=== PATIENT | male | born 1955 | race Native Hawaiian/Other Pacific Islander ===

== ENCOUNTER 2017-12-19 18:40 | Emergency (ER) | payer BC ==
--- NOTE | 2017-12-19 19:35 | ED ---
General Adult HPI - General Source: patient, RN notes reviewed Mode of arrival: ambulatory Limitations: no limitations <Yoel Norman - Last Filed: 12/19/17 21:29> <Aiden Cameron - Last Filed: 12/19/17 21:37> - General Chief complaint: Neck Pain/Injury Stated complaint: Neck pain Time Seen by Provider: 12/19/17 18:57 - History of Present Illness Initial comments: 62-year-old male presents to the emergency department for a chief complaint of head and neck pain 5 days. Patient states he came home from [place] and started to have this pain. He states the pain travels from his neck up through the back of his head. He states the pain is worse with movement of the neck. Patient describes the pain in his head as a throbbing pain and is generalized in nature. He denies any photosensitivity or sensitivity to sound. He denies any visual changes. Patient denies any recent head or neck injuries. He does admit to having a teeth cleaning 4 days ago. He denies taking any blood thinners. Patient also complains about a sore throat. He states he has pain with swallowing. He denies any difficulty swallowing solids or liquids. He denies any sensation of swelling of the throat or difficulty breathing. Patient has no other complaints at this time including shortness of breath, chest pain, abdominal pain, nausea or vomiting, headache, or visual changes. (Yoel Norman) - Related Data Home Medications Medication Instructions Recorded Confirmed Celecoxib [CeleBREX] 200 mg PO DAILY 09/18/15 09/18/15 Modafinil [Provigil] 200 mg PO BID 09/18/15 09/21/15 Multivitamins, Thera [Multivitamin] 1 each PO DAILY 09/18/15 09/18/15 Tamsulosin HCl 0.4 mg OP HS 09/18/15 09/21/15 Allergies Allergy/AdvReac Type Severity Reaction Status Date / Time morphine AdvReac Nausea & Verified 09/18/15 17:46 Vomiting Review of Systems ROS Other: All systems not noted in ROS Statement are negative. <Yoel Norman - Last Filed: 12/19/17 21:29> ROS Other: All systems not noted in ROS Statement are negative. <Aiden Cameron - Last Filed: 12/19/17 21:37> ROS Statement: Those systems with pertinent positive or pertinent negative responses have been documented in the HPI. Past Medical History Past Medical History: Prostate Disorder History of Any Multi-Drug Resistant Organisms: None Reported Past Surgical History: Appendectomy, Hernia Repair, Joint Replacement Additional Past Surgical History / Comment(s): LT SHANTEL, BILAT TKA, Past Anesthesia/Blood Transfusion Reactions: No Reported Reaction Past Psychological History: No Psychological Hx Reported Smoking Status: Never smoker Past Alcohol Use History: Rare Past Drug Use History: None Reported - Past Family History Mother Family Medical History: Cancer Additional Family Medical History / Comment(s): KIDNEY Daughter(s) Family Medical History: Cancer Additional Family Medical History / Comment(s): BREAST <Yoel Norman P - Last Filed: 12/19/17 21:29> General Exam Limitations: no limitations General appearance: alert, in no apparent distress Head exam: Present: atraumatic, normocephalic, normal inspection Eye exam: Present: normal appearance, PERRL, EOMI. Absent: scleral icterus, conjunctival injection, periorbital swelling ENT exam: Present: normal exam, mucous membranes moist Neck exam: Present: normal inspection, tenderness (Tenderness to the cervical spine of the neck). Absent: meningismus, full ROM (Patient has limited flexion and extension of the neck. Patient is unable to rotate the neck bilaterally due to pain.), lymphadenopathy Respiratory exam: Present: normal lung sounds bilaterally. Absent: respiratory distress, wheezes, rales, rhonchi, stridor Cardiovascular Exam: Present: regular rate, normal rhythm, normal heart sounds. Absent: systolic murmur, diastolic murmur, rubs, gallop, clicks Neurological exam: Present: alert, oriented X3, CN II-XII intact Expanded Patient oriented to: Present: person, place, time Speech: Present: fluid speech Cranial nerves: EOM's Intact: Normal, Tongue Deviation: Normal, Nystagmus: Normal, Facial Sensation: Normal Cerebellar function: Romberg: Normal Upper motor neuron: Pronator Drift: Normal Sensory exam: Upper Extremity Light Touch: Normal, Upper Extremity Pin Prick: Normal, Lower Extremity Light Touch: Normal, Lower Extremity Pin Prick: Normal Motor strength exam: RUE: 5, LUE: 5, RLE: 5, LLE: 5 Eye Response: (4) open spontaneously Motor Response: (6) obeys commands Verbal Response: (5) oriented Piero Total: 15 (No drift of legs) Psychiatric exam: Present: normal affect, normal mood <Yoel Norman - Last Filed: 12/19/17 21:29> Vital Signs 12/19/17 12/19/17 18:44 20:29 Temperature 98.1 F 99.3 F Pulse Rate 64 Respiratory 18 19 Rate Blood Pressure 165/103 140/85 O2 Sat by Pulse 98 98 Oximetry Medical Decision Making - Lab Data Result diagrams: 12/19/17 19:35 12/19/17 19:35 <Yoel Norman - Last Filed: 12/19/17 21:29> - Lab Data Result diagrams: 12/19/17 19:35 12/19/17 19:35 <Aiden Cameron - Last Filed: 12/19/17 21:37> - Medical Decision Making 62-year-old male with a history of orthopedic surgery and appendectomy presents the emergency department for chief complaint of head and neck pain as well as odynophagia. Patient states he has a generalized throbbing headache at a 10 out of 10. He denies hitting his head or being on blood thinners. He states his neck is painful to turn bilaterally. He states his throat is painful when he swallows. He denies having any difficulty swallowing solids or liquids. No focal neuro deficits, GCS 15. On exam patient does have limited range of motion of the neck. Oropharynx nonerythematous. Uvula midline, no tonsillar exudates noted bilaterally. CBC and CMP unremarkable. Carbon monoxide is 2. Patient is a nonsmoker. Group A strep was negative. CT brain is negative. There is significant prevertebral soft tissue swelling and fluid consistent with retropharyngeal abscess. This measures up to 2.5 x 1 cm in transverse dimension. No sign of intracranial hemorrhage. Blood cultures were initiated and patient is started on Unasyn. Dr. Cameron spoke with Dr. Parks who recommended transfer by ambulance to [facility]. Patient is currently stable, no stridor, no difficulty breathing. Dr. Cameron also saw the patient. (Yoel Norman) I saw this patient in conjunction with the physician assistant account manager. I performed independent history and physical exam. Agree with case management. I discussed case with Dr. Parks, who states that given the complexity of many retropharyngeal abscesses he recommends a tertiary care facility for treatment of this case. I discussed transfer options with the patient and his , and they elect to have [facility]. I discussed case with the surgical AOD, Dr. Talbot who accepts transfer to their emergency department. The patient is protecting his airway. There is no stridor. Room air saturations are good and vital signs are stable. (Aiden Cameron) - Lab Data Lab Results 12/19/17 12/19/17 12/19/17 Range/Units 19:35 19:35 19:35 WBC 8.6 (3.8-10.6) k/uL RBC 5.04 (4.30-5.90) m/uL Hgb 14.9 (13.0-17.5) gm/dL Hct 45.5 (39.0-53.0) % MCV 90.3 (80.0-100.0) fL MCH 29.7 (25.0-35.0) pg MCHC 32.9 (31.0-37.0) g/dL RDW 12.9 (11.5-15.5) % Plt Count 206 (150-450) k/uL Neutrophils % 72 % Lymphocytes % 15 % Monocytes % 8 % Eosinophils % 3 % Basophils % 0 % Neutrophils # 6.2 (1.3-7.7) k/uL Lymphocytes # 1.3 (1.0-4.8) k/uL Monocytes # 0.7 (0-1.0) k/uL Eosinophils # 0.2 (0-0.7) k/uL Basophils # 0.0 (0-0.2) k/uL ESR 6 (0-15) mm/hr Carbon Monoxide, Quant (<10.0) % Sodium 138 (137-145) mmol/L Potassium 4.2 (3.5-5.1) mmol/L Chloride 105 (98-107) mmol/L Carbon Dioxide 26 (22-30) mmol/L Anion Gap 7 mmol/L BUN 21 H (9-20) mg/dL Creatinine 0.89 (0.66-1.25) mg/dL Est GFR (CKD-EPI)AfAm >90 (>60 ml/min/1.73 sqM) Est GFR (CKD-EPI)NonAf >90 (>60 ml/min/1.73 sqM) Glucose 71 L (74-99) mg/dL Calcium 8.8 (8.4-10.2) mg/dL Total Bilirubin 0.7 (0.2-1.3) mg/dL AST 33 (17-59) U/L ALT 29 (21-72) U/L Alkaline Phosphatase 64 (38-126) U/L Total Protein 6.4 (6.3-8.2) g/dL Albumin 3.8 (3.5-5.0) g/dL Group A Strep Rapid Negative (Negative) 12/19/17 Range/Units 19:35 WBC (3.8-10.6) k/uL RBC (4.30-5.90) m/uL Hgb (13.0-17.5) gm/dL Hct (39.0-53.0) % MCV (80.0-100.0) fL MCH (25.0-35.0) pg MCHC (31.0-37.0) g/dL RDW (11.5-15.5) % Plt Count (150-450) k/uL Neutrophils % % Lymphocytes % % Monocytes % % Eosinophils % % Basophils % % Neutrophils # (1.3-7.7) k/uL Lymphocytes # (1.0-4.8) k/uL Monocytes # (0-1.0) k/uL Eosinophils # (0-0.7) k/uL Basophils # (0-0.2) k/uL ESR (0-15) mm/hr Carbon Monoxide, Quant 2.0 (<10.0) % Sodium (137-145) mmol/L Potassium (3.5-5.1) mmol/L Chloride (98-107) mmol/L Carbon Dioxide (22-30) mmol/L Anion Gap mmol/L BUN (9-20) mg/dL Creatinine (0.66-1.25) mg/dL Est GFR (CKD-EPI)AfAm (>60 ml/min/1.73 sqM) Est GFR (CKD-EPI)NonAf (>60 ml/min/1.73 sqM) Glucose (74-99) mg/dL Calcium (8.4-10.2) mg/dL Total Bilirubin (0.2-1.3) mg/dL AST (17-59) U/L ALT (21-72) U/L Alkaline Phosphatase (38-126) U/L Total Protein (6.3-8.2) g/dL Albumin (3.5-5.0) g/dL Group A Strep Rapid (Negative) Disposition Time of Disposition: 21:27 - Out of Hospital Transfer - Req. Specs Out of Hospital Transfer - Requested Specifics: Other Emergency Center ([facility]) <Yoel Norman - Last Filed: 12/19/17 21:29> <Aiden Cameron - Last Filed: 12/19/17 21:37> Clinical Impression: Retropharyngeal abscess Disposition: OTHER INSTITUTION NOT DEFINED Condition: Good Referrals: Chito Mejia MD [Primary Care Provider] - 1-2 days
[2017-12-19] MEDS ORDERED: SODIUM CHLORIDE 0.9% 1,000 ML IV STA (19:47)
[2017-12-19 20:18] LABS: Basophils % (A) 0 %; Eosinophils # (A) 0.2 k/uL (0-0.7); Eosinophils % (A) 3 %; HCT 45.5 % (39.0-53.0); HGB 14.9 gm/dL (13.0-17.5); Lymphocytes # (A) 1.3 k/uL (1.0-4.8); Lymphocytes % (A) 15 %; MCH 29.7 pg (25.0-35.0); MCHC 32.9 g/dL (31.0-37.0); MCV 90.3 fL (80.0-100.0); Mean Platelet Volume 6.7; Monocytes # (A) 0.7 k/uL (0-1.0); Monocytes % (A) 8 %; Neutrophils # (A) 6.2 k/uL (1.3-7.7); Neutrophils % (A) 72 %; Platelet Count 206 k/uL (150-450); RBC 5.04 m/uL (4.30-5.90); RDW 12.9 % (11.5-15.5); WBC 8.6 k/uL (3.8-10.6)
[2017-12-19 20:27] LABS: Albumin 3.8 g/dL (3.5-5.0); Anion Gap 7 mmol/L; Blood Urea Nitrogen 21 mg/dL (9-20); Calcium 8.8 mg/dL (8.4-10.2); Carbon Dioxide 26 mmol/L (22-30); Chloride 105 mmol/L (98-107); Glucose 71 mg/dL (74-99); Sodium 138 mmol/L (137-145); Total Bilirubin 0.7 mg/dL (0.2-1.3); Total Protein 6.4 g/dL (6.3-8.2)
--- NOTE | 2017-12-19 20:36 | CT ---
EXAMINATION TYPE: CT brain umm [place] con DATE OF EXAM: 12/19/2017 COMPARISON: None HISTORY: c/o neck and head pain, no injury CT DLP: 1300 mGycm Automated exposure control for dose reduction was used. TECHNIQUE: CT scan of the head and cervical spine are performed without contrast. FINDINGS: Ventricles of normal size. There is no mass effect nor midline shift. There is no sign of intracranial hemorrhage. Calvarium is intact. There are mucus retention cysts in the right maxillary sinus. Cervical vertebra have normal spacing and alignment for the patient's age. Posterior elements are int act. Facet joints are fairly normal. Skull base is intact. There is significant prevertebral soft tis meng swelling. There is fluid and measures up to 2.5 x 1 cm in transverse dimension. IMPRESSION: Negative CT scan of the brain. Significant prevertebral soft tissue swelling and fluid is consistent with retropharyngeal abscess.
[2017-12-19 20:40] LABS: ALT 29 U/L (21-72); AST 33 U/L (17-59); Alkaline Phosphatase 64 U/L (38-126); Potassium 4.2 mmol/L (3.5-5.1)
[2017-12-19] MEDS ORDERED: AMPICILLIN-SULBACTAM 3 GM in SODIUM CHLORIDE 0.9% 100 ML IVPB STA (20:45)
[2017-12-19] MEDS ORDERED: KETOROLAC 30 MG/ML 1 ML VIAL IVP STA (20:46)
[2017-12-19 21:12] LABS: Erythrocyte Sedimentation Rate 6 mm/hr (0-15)
[2017-12-19 22:24] LABS: Glucose,Whole Blood 93 mg/dL (75-99)
[2017-12-19] MEDS ORDERED: ONDANSETRON 4 MG/2 ML VIAL IVP STA (22:27)
[2017-12-19] MEDS ORDERED: HYDROmorphone 1 MG/ML 1 ML SYRINGE IVP STA (22:28)
[2017-12-19 22:55] VITALS: BP 130/86; PULSE 62; RESP 19; TEMP 99
== END 2017-12-19 22:35 | disposition short-term general hospital (02) ==
LOC: EC 18:40
DX: J39.0 Retropharyngeal and parapharyngeal abscess (principal); R51 Headache; Z79.899 Other long term (current) drug therapy; Z88.5 Allergy status to narcotic agent
CPT/HCPCS: 99285; 96365; 96375 ×3; 96361; 36415; 93005; 80053; 85652; 82375; 85025; 87040; 87081; 87430; 72125; 70450; J2405; J1885; J1170; J0295

== ENCOUNTER 2019-01-04 15:55 | Emergency (ER) | payer BC, OTHER ==
[2019-01-04 16:04] VITALS: TEMP 97.9
--- NOTE | 2019-01-04 16:22 | ED ---
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 Time Seen by Provider: 01/04/19 16:05 - History of Present Illness Initial Comments: 63-year-old male presents emergency Department with chief complaint of slip and fall. Patient slipped on some ice fell directly backwards yesterday. Patient states it happened supple please unsure if he struck his head or not. He does complain of some mild neck pain, back pain. Patient states that he also injured his right knee and right ankle but has been ambulating. Patient was seen at [facility] and sent here for imaging. He denies any blurred vision, focal weakness, nausea, vomiting, diarrhea constipation no difficulty urinating no bowel bladder incontinence or retention. (Michael Maya) - Related Data Home Medications Medication Instructions Recorded Confirmed Celecoxib [CeleBREX] 200 mg PO DAILY 09/18/15 09/18/15 Modafinil [Provigil] 200 mg PO BID 09/18/15 09/21/15 Multivitamins, Thera [Multivitamin] 1 each PO DAILY 09/18/15 09/18/15 Tamsulosin HCl 0.4 mg OP HS 09/18/15 09/21/15 Allergies Allergy/AdvReac Type Severity Reaction Status Date / Time morphine AdvReac Nausea & Verified 01/04/19 16:04 Vomiting Review of Systems ROS Other: All systems not noted in ROS Statement are negative. <Michael Maya - Last Filed: 01/04/19 16:52> ROS Other: All systems not noted in ROS Statement are negative. <Chuck Valerio - Last Filed: 01/04/19 18:18> ROS Statement: Those systems with pertinent positive or pertinent negative responses have been documented in the HPI. Past Medical History Past Medical History: Prostate Disorder History of Any Multi-Drug Resistant Organisms: None Reported Past Surgical History: Appendectomy, Hernia Repair, Joint Replacement Additional Past Surgical History / Comment(s): LT SHANTEL, BILAT TKA, Past Anesthesia/Blood Transfusion Reactions: No Reported Reaction Past Psychological History: No Psychological Hx Reported Smoking Status: Never smoker Past Alcohol Use History: Rare Past Drug Use History: None Reported - Past Family History Mother Family Medical History: Cancer Additional Family Medical History / Comment(s): KIDNEY Daughter(s) Family Medical History: Cancer Additional Family Medical History / Comment(s): BREAST <Michael Maya - Adama Filed: 01/04/19 16:52> General Exam Limitations: no limitations General appearance: alert, in no apparent distress Head exam: Present: atraumatic, normocephalic, normal inspection Eye exam: Present: normal appearance, PERRL, EOMI. Absent: scleral icterus, conjunctival injection, periorbital swelling ENT exam: Present: normal exam, normal oropharynx, mucous membranes moist, TM's normal bilaterally, normal external ear exam Neck exam: Present: normal inspection, tenderness (Diffuse tenderness no step- offdeformity), full ROM. Absent: meningismus, lymphadenopathy Respiratory exam: Present: normal lung sounds bilaterally. Absent: respiratory distress, wheezes, rales, rhonchi, stridor Cardiovascular Exam: Present: regular rate, normal rhythm, normal heart sounds. Absent: systolic murmur, diastolic murmur, rubs, gallop, clicks GI/Abdominal exam: Present: soft, normal bowel sounds. Absent: distended, tenderness, guarding, rebound, rigid Extremities exam: Present: full ROM, tenderness (Tenderness the right knee, right ankle no obvious deformity neurovascular intact full range of motion), normal capillary refill. Absent: normal inspection, pedal edema, joint swelling, calf tenderness Back exam: Present: normal inspection, full ROM, tenderness, paraspinal tenderness, vertebral tenderness. Absent: CVA tenderness (R), CVA tenderness (L) Neurological exam: Present: alert, oriented X3, CN II-XII intact, reflexes normal. Absent: motor sensory deficit Skin exam: Present: warm, dry, intact, normal color. Absent: rash <Michael Maya - Last Filed: 01/04/19 16:52> General appearance: alert, in no apparent distress Head exam: Present: atraumatic, normocephalic, normal inspection Eye exam: Present: normal appearance, PERRL, EOMI. Absent: scleral icterus, conjunctival injection, periorbital swelling ENT exam: Present: normal exam, mucous membranes moist Neck exam: Present: normal inspection. Absent: tenderness, meningismus, lymphadenopathy Respiratory exam: Present: normal lung sounds bilaterally. Absent: respiratory distress, wheezes, rales, rhonchi, stridor Cardiovascular Exam: Present: regular rate, normal rhythm, normal heart sounds. Absent: systolic murmur, diastolic murmur, rubs, gallop, clicks GI/Abdominal exam: Present: soft, normal bowel sounds. Absent: distended, tenderness, guarding, rebound, rigid Extremities exam: Present: normal inspection, full ROM, normal capillary refill. Absent: tenderness, pedal edema, joint swelling, calf tenderness Back exam: Present: normal inspection Neurological exam: Present: alert, oriented X3, CN II-XII intact Psychiatric exam: Present: normal affect, normal mood Skin exam: Present: warm, dry, intact, normal color. Absent: rash <Chuck Valerio - Last Filed: 01/04/19 18:18> Course <Chuck Valerio - Last Filed: 01/04/19 18:18> Vital Signs 01/04/19 15:58 Temperature 97.9 F Pulse Rate 64 Respiratory 16 Rate Blood Pressure 176/116 O2 Sat by Pulse 96 Oximetry - Reevaluation(s) Reevaluation #1: 01/04/19 18:17 Patient has adequate pain control (Chuck Valerio) Reevaluation #2: 01/04/19 18:17 Patient informed of results, will discharge (Chuck Valerio) Medical Decision Making - Radiology Data Radiology results: report reviewed (CT brain C-spine x-rays including shoulder chest thoracic and lumbar spine are negative for traumatic injury), image reviewed <Chuck Valerio - Last Filed: 01/04/19 18:18> - Medical Decision Making 63 male the ER status post fall trip and fall snow. No traumatic injury found on exam no traumatic injury found on imaging. Urine does not show any blood. Patient can be discharged home (Chuck Valerio) - Lab Data Lab Results 01/04/19 Range/Units 17:27 Urine Color Yellow Urine Appearance Clear (Clear) Urine pH 5.5 (5.0-8.0) Ur Specific [place] 1.023 (1.001-1.035) Urine Protein Trace H (Negative) Urine Glucose (UA) Negative (Negative) Urine Ketones Negative (Negative) Urine Blood Negative (Negative) Urine Nitrite Negative (Negative) Urine Bilirubin Negative (Negative) Urine Urobilinogen <2.0 (<2.0) mg/dL Ur Leukocyte Esterase Trace H (Negative) Urine RBC 3 (0-5) /hpf Urine WBC 6 H (0-5) /hpf Urine Mucus Rare H (None) /hpf Disposition Is patient prescribed a controlled substance at d/c from ED?: No <Michael Maya - Last Filed: 01/04/19 16:52> <Chuck Valerio - Last Filed: 01/04/19 18:18> Clinical Impression: Fall due to slipping on ice or snow, Right ankle sprain, Right knee sprain, Back pain, Neck pain Disposition: HOME SELF-CARE Condition: Stable Instructions (If sedation given, give patient instructions): Ankle Sprain (ED), Acute Neck Pain (ED) Additional Instructions: Please return to the Emergency Department if symptoms worsen or any other concerns. Referrals: Chito Mejia MD [Primary Care Provider] - 1-2 days
--- NOTE | 2019-01-04 16:46 | CT ---
EXAMINATION TYPE: CT brain franciscoine wo con DATE OF EXAM: 01/04/2019 COMPARISON: 12/19/2017 HISTORY: Fall today with head and neck pain. CT DLP: 1609.5 mGycm. Automated Exposure Control for Dose Reduction was Utilized. TECHNIQUE: CT scan of the head and cervical spine are performed without contrast. FINDINGS: There is no acute intracranial hemorrhage, mass effect, or midline shift identified. The ventricles and sulci are symmetrically prominent compatible with age-related volume loss. Right max illary mucosal retention cysts are again demonstrated. Scant mucosal thickening of the ethmoid sinuse s. Remaining paranasal sinuses and mastoid air cells are well aerated. Globes maintain a normal round ed morphology and lenses are in place. Cervical spine is visualized in its entirety from C1 through upper thoracic levels and demonstrates s atisfactory alignment without evidence of acute fracture or dislocation. Prevertebral soft tissue ap pears within normal limits. The previously seen prevertebral fluid collection has resolved. The C1-C2 articulation is unremarkable. Probable aneurysmal dilatation of the ascending thoracic aorta althou gh only partially visualized. Punctate sclerotic focus of C3 is likely a benign bone island. Very min imal uncovertebral hypertrophy is seen without a grade spinal canal stenosis. Spinal canal is limited on CT. IMPRESSION: 1. There is no acute fracture or dislocation evident in the cervical spine. 2. No acute intracranial hemorrhage, mass effect, or midline shift is seen. 3. Mild age-related volume loss as seen on the prior. Redemonstration of multiple right maxillary muc osal retention cysts, also seen on the prior.
[2019-01-04] MEDS ORDERED: KETOROLAC 60 MG/2 ML VIAL IM STA (16:56)
--- NOTE | 2019-01-04 17:03 | XR ---
EXAMINATION TYPE: XR ankle complete RT DATE OF EXAM: 01/04/2019 CLINICAL HISTORY: Right ankle pain after fall TECHNIQUE: Frontal, lateral and oblique images of the right ankle are obtained. COMPARISON: None. FINDINGS: There is no acute fracture/dislocation evident in the right ankle. The ankle mortise appe ars within normal limits. The overlying soft tissue appears unremarkable. IMPRESSION: There is no acute fracture or dislocation in the right ankle.
--- NOTE | 2019-01-04 17:03 | XR ---
EXAMINATION TYPE: XR thoracic spine 2V DATE OF EXAM: 01/04/2019 CLINICAL HISTORY: Fall with mid back pain. TECHNIQUE: Frontal, lateral, and swimmer's view of thoracic spine are obtained. COMPARISON: None. FINDINGS: There is an exaggerated thoracic kyphosis. Thoracic spine show satisfactory alignment witho ut evidence of acute fracture or dislocation. Anterior osteophytes are seen throughout the thoracic spine. Vertebral body heights and disc space heights are preserved. Visualized ribs are unremarkable. IMPRESSION: Exaggerated thoracic kyphosis. Mild multilevel degenerative change of the thoracic spine. No acute fracture or dislocation is seen in the thoracic spine.
--- NOTE | 2019-01-04 17:04 | XR ---
EXAMINATION TYPE: XR knee complete RT DATE OF EXAM: 01/04/2019 CLINICAL HISTORY: Right knee pain after fall TECHNIQUE: Three views of the right knee are obtained. COMPARISON: None. FINDINGS: There is no acute fracture/dislocation evident in right knee. The right knee arthroplasty maintains normal alignment without hardware fracture. The overlying soft tissue appears unremarkabl e. IMPRESSION: There is no acute fracture or dislocation in the right knee arthroplasty nor [place] bone .
--- NOTE | 2019-01-04 17:05 | XR ---
EXAMINATION TYPE: XR lumbar spine 2 or 3V DATE OF EXAM: 01/04/2019 CLINICAL HISTORY: Back pain after fall TECHNIQUE: Frontal and lateral images of the lumbar spine are obtained. COMPARISON: None FINDINGS: There are 5 lumbar type vertebral bodies identified. The lumbar spine shows satisfactory alignment without evidence of acute fracture or dislocation. Vertebral body heights and disk space he ights are within normal limits. Facet arthropathy is seen from L4 through S1. Small anterior osteophy eduardo throughout the lumbar spine. The overlying soft tissue appears unremarkable. Partial visualizati on of a left hip arthroplasty and surgical clip in the right hemipelvis. IMPRESSION: No acute fracture or malalignment is seen in the lumbar spine. Mild multilevel degenerat galdino disc disease.
--- NOTE | 2019-01-04 17:48 | XR ---
PROCEDURE: XR shoulder complete RT - 3V DATE AND TIME: 01/04/2019 5:36 PM CLINICAL INDICATION: PHH; pain post fall TECHNIQUE: Department protocol COMPARISON: None FINDINGS: There is no fracture or malalignment. The soft tissues are unremarkable. IMPRESSION: NO ACUTE PROCESS.
[2019-01-04 17:57] LABS: Appearance,Urine Clear (Clear); Bilirubin,Urine Negative (Negative); Blood,Urine Negative (Negative); Color,Urine Yellow; Glucose,Urine (UA) Negative (Negative); Ketones,Urine Negative (Negative); Leukocyte Esterase,Urine Trace (Negative); Mucus,Urine Rare /hpf; Nitrite,Urine Negative (Negative); PH, Urine 5.5 (5.0-8.0); Protein,Urine Trace (Negative); RBC,Urine 3 /hpf (0-5); Specific Gravity,Urine 1.023 (1.001-1.035); Urobilinogen,Urine <2.0 mg/dL (<2.0); WBC,Urine 6 /hpf (0-5)
[2019-01-04 18:37] VITALS: BP 170/92; PULSE 78; RESP 19
== END 2019-01-04 18:37 | disposition home or self-care (01) ==
LOC: EC 15:55
DX: S93.401A Sprain of unspecified ligament of right ankle, initial encounter (principal); S83.91XA Sprain of unspecified site of right knee, initial encounter; M54.2 Cervicalgia; M54.9 Dorsalgia, unspecified; Z79.899 Other long term (current) drug therapy; Z88.5 Allergy status to narcotic agent; Z96.653 Presence of artificial knee joint, bilateral; Z96.642 Presence of left artificial hip joint; W00.0XXA Fall on same level due to ice and snow, initial encounter
CPT/HCPCS: 81001; 72070; 72100; 73030; 73562; 73610; 72125; 70450; 99284; 96372; J1885

== ENCOUNTER → 2019-01-15 | Outpatient (CLI) | payer BC ==
--- NOTE | 2019-01-15 10:21 | CT ---
EXAMINATION TYPE: CT angio chest DATE OF EXAM: 01/15/2019 10:04 AM COMPARISON: Thoracic spine radiograph 01/04/2019 HISTORY: Aneurysm of thoracic aorta. Noted on cspine from 01/04/19. CT DLP: 1232.1 mGycm Automated exposure control for dose reduction was used. CONTRAST: CTA scan of the thorax is performed without and with IV Contrast, patient injected with 100 mL of Iso ekta 370, aortic aneurysm protocol. 3D and MIP reconstructed images are created on an independent wor kstation and reviewed. FINDINGS: Normal course and caliber of the thoracic aorta. No intramural hematoma. No dissection flap, aneurysm , or luminal irregularity. Three-vessel arch without significant ostial stenosis. Mild calcified athe rosclerotic plaque of the aortic arch. The lungs are clear. No pleural effusion or pneumothorax. Heart is within normal limits of size. No pericardial effusion. There are no greater than 1 cm hilar or mediastinal lymph nodes. Elongated air-filled saccule along the dorsal esophagus measures approximately 4.3 cm long, likely Ze nker's diverticulum. No osseous destructive lesion. IMPRESSION: 1. No thoracic aortic aneurysm. No aortic intramural hematoma or dissection. 2. Probable Zenker's diverticulum.
== END | disposition home or self-care (01) ==
LOC: RADCTMAIN 09:04
PROVIDERS: ATTEND Family Medicine
DX: I71.2 Thoracic aortic aneurysm, without rupture (principal)
CPT/HCPCS: 71275; Q9967

== ENCOUNTER → 2019-09-02 | Outpatient (CLI) | payer BC | END | disposition home or self-care (01) | LOC: LABWHC1 13:13 | PROVIDERS: ATTEND Family Medicine | DX: Z20.828 Contact with and (suspected) exposure to other viral communicable diseases (principal) | CPT/HCPCS: 36415 ==

== ENCOUNTER 2020-05-01 12:01 | Day surgery (SDC) | payer BC ==
--- NOTE | 2020-04-30 09:04 | P.GSHP ---
History of Present Illness H&P Date: 04/30/20 64 yo male with an 8 mm proximal ureteral stone wiht hydro and recurrent pain. He comes for a right ureteroscopy and laser lithotripsy. The alternatives have been discussed The risks and complications of this procedure have been discussed. - Constitutional Constitutional: Denies chills, Denies fever - EENT Eyes: denies blurred vision, denies pain Ears, nose, mouth and throat: Denies headache, Denies sore throat - Cardiovascular Cardiovascular: Denies chest pain, Denies shortness of breath - Respiratory Respiratory: Denies cough, Denies 7 - Gastrointestinal Gastrointestinal: Denies abdominal pain, Denies diarrhea, Denies nausea, Denies vomiting - Genitourinary (Female) Genitourinary: Denies dysuria, Denies hematuria - Genitourinary (Male) Genitourinary: Denies dysuria, Denies hematuria - Musculoskeletal Musculoskeletal: Denies myalgias - Integumentary Integumentary: Denies pruritus, Denies rash - Neurological Neurological: Denies numbness, Denies weakness - Psychiatric Psychiatric: Denies anxiety, Denies depression - Endocrine Endocrine: Denies fatigue, Denies weight change Past Medical History Past Medical History: Prostate Disorder History of Any Multi-Drug Resistant Organisms: None Reported Past Surgical History: Appendectomy, Hernia Repair, Joint Replacement Additional Past Surgical History / Comment(s): LT SHANTEL, BILAT TKA, Past Anesthesia/Blood Transfusion Reactions: No Reported Reaction Past Psychological History: No Psychological Hx Reported Past Alcohol Use History: Rare Past Drug Use History: None Reported - Past Family History Mother Family Medical History: Cancer Additional Family Medical History / Comment(s): KIDNEY Daughter(s) Family Medical History: Cancer Additional Family Medical History / Comment(s): BREAST Medications and Allergies Home Medications Medication Instructions Recorded Confirmed Type Celecoxib [CeleBREX] 200 mg PO DAILY 09/18/15 09/18/15 History Multivitamins, Thera [Multivitamin] 1 each PO DAILY 09/18/15 09/18/15 History Tamsulosin HCl 0.4 mg OP HS 09/18/15 09/21/15 History modafiniL [Provigil] 200 mg PO BID 09/18/15 09/21/15 History Allergies Allergy/AdvReac Type Severity Reaction Status Date / Time morphine AdvReac Nausea & Verified 01/04/19 16:04 Vomiting Surgical - Exam - General well developed, well nourished, moderate distress - Eyes PERRL - ENT no hearing loss - Neck no masses, no bruits - Respiratory normal expansion, normal respiratory effort - Cardiovascular Rhythm: regular - Abdomen Abdomen: soft, tender - Genitourinary normal penis with no external lesions, testicles present - Integumentary no rash, no growths - Neurologic normal coordination, normal sensation - Musculoskeletal normal gait, normal posture - Psychiatric oriented to time, oriented to person, oriented to place, speech is normal, mem ory intact Results - Imaging Abdominal x-ray: report reviewed, image reviewed CT scan - abdomen: report reviewed, image reviewed CT scan - pelvis: report reviewed, image reviewed Assessment and Plan Assessment: Impression. Right ureteral stonewith pain and hydro Plan. Right ureteroscopy with laser lithotripsy, possible stent
[2020-04-30 09:57] VITALS: BMI 35.4
[~2020-05-01 12:01] MED LIST: DEXAMETHASONE SOD PHOSPHATE 4 MG/ML 1 ML VIAL IV ONE; LACTATED RINGERS 1,000 ML IV SCH; LIDOCAINE 1% (10MG/ML) FOR IV START INTRADERMA PRN; ONDANSETRON 4 MG/2 ML VIAL IVP ONE
[2020-05-01] MEDS ORDERED: ONDANSETRON 4 MG/2 ML VIAL ONE (12:11)
[2020-05-01 12:30] VITALS: RESP 16
--- NOTE | 2020-05-01 13:15 | XR ---
EXAMINATION TYPE: XR KUB DATE OF EXAM: 05/01/2020 COMPARISON: NONE HISTORY: Preop TECHNIQUE: One view abdominal series FINDINGS: The bowel gas pattern nonspecific. There are at least 3 calcifications overlying the lower pole the l eft kidney measuring approximately 5 mm. Right renal outline is obscured by bowel content. Post surgi mali change left hip. Suggestion of surgical clips overlying the right sacrum. Hypertrophic change of the spine. Correlate for constipation. IMPRESSION: 1. Suspect lower pole left renal calculi. 2. Limited assessment of the right renal outline to extensive overlying bowel content.
[2020-05-01] MEDS ORDERED: GLYCOPYRROLATE 0.2 MG/ML 2 ML VIAL ONE (13:26)
[2020-05-01] MEDS ORDERED: MIDAZOLAM 2 MG/2 ML VIAL ONE (13:26)
[2020-05-01] MEDS ORDERED: PROPOFOL 10 MG/ML 20 ML VIAL IV ONE (13:26)
[2020-05-01] MEDS ORDERED: SUCCINYLCHOLINE CHLORIDE 100 MG/5 ML SYR IV ONE (13:26)
[2020-05-01] MEDS ORDERED: NEOSTIGMINE 1 MG/ML 10 ML VIAL ONE (13:26)
[2020-05-01] MEDS ORDERED: ROCURONIUM 10 MG/ML (5 ML VIAL) IV ONE (13:26)
[2020-05-01] MEDS ORDERED: LIDOCAINE 1% INJ 10MG/ML (20 ML MDV) ONE (13:26)
[2020-05-01] MEDS ORDERED: fentaNYL (PF) 50 MCG/ML 2 ML AMP ONE (13:26)
[2020-05-01] MEDS ORDERED: SODIUM CHLORIDE 0.9% 50 ML with ceFAZolin 2,000 MG IV ONE ×2 (13:40)
--- NOTE | 2020-05-01 14:25 | FL ---
EXAMINATION TYPE: FL guidance operating room DATE OF EXAM: 05/01/2020 HISTORY: Fluoroscopy time 5 seconds of fluoroscopy provided. IMPRESSION: 1. Fluoroscopy time.
--- NOTE | 2020-05-01 14:25 | P.OP ---
Date of Procedure: 05/01/20 Preoperative Diagnosis: Right ureteral stone Postoperative Diagnosis: Same Procedure(s) Performed: Cystoscopy, right ureteroscopy laser lithotripsy Anesthesia: HAYDEA Surgeon: Luigi Duque Estimated Blood Loss (ml): 0 Pathology: none sent Condition: stable Disposition: PACU Indications for Procedure: The patient is 64. He has a 7 mm proximal ureteral stone on the right. He comes for a right ureteroscopy and laser lithotripsy alternatives have been discussed Description of Procedure: The patient was brought to the operating suite. He is given a general endotracheal anesthesia. He's placed lithotomy position with sterile prep and drape. Protect his right knee which is been previously operated on. Stone was seen under fluoroscopy. Cystoscopy Foroblique lens and 21-Faroese sheath identifies normal urethra. The prostate is not obstructing. The bladder velez unremarkable. The right ureteral orifice is dilated with an 8 cone-tip catheter. I passed a 7-Faroese stent mini ureteroscope up to just distal to the stone. Due to some angulation I passed a wire through the ureter up to the renal pelvis and over the wire pass the scope up to the stone. With the 200 laser probe the stone is dusted such that no fragments will lodged nor any f ragments basketed. Then the procedure the ureter scope was removed and the bladder strain the patient awake and returned recovery in good condition Impression successful right ureteroscopy laser lithotripsy. Recommendations patient to discharge home upon recovery and found the office in one week.
[2020-05-01 15:05] VITALS: TEMP 97
[2020-05-01 15:53] VITALS: BP 153/96; PULSE 57
== END 2020-05-01 16:13 | disposition home or self-care (01) ==
LOC: OR 12:01
PROVIDERS: ATTEND Urology
DX: N13.2 Hydronephrosis with renal and ureteral calculous obstruction (principal); G47.33 Obstructive sleep apnea (adult) (pediatric); Z80.51 Family history of malignant neoplasm of kidney; Z80.3 Family history of malignant neoplasm of breast; Z79.899 Other long term (current) drug therapy; Z88.5 Allergy status to narcotic agent
CPT/HCPCS: 84132; 74018; 52353; C1758; C1769; J2250; J1100; J2710; J2405; J0690; J2001; J3010; J0330; J2704

== ENCOUNTER → 2021-07-01 | Outpatient (CLI) | payer OTHER ==
--- NOTE | 2021-07-01 12:02 | CT ---
EXAMINATION TYPE: CT abdomen pelvis wo con DATE OF EXAM: 07/01/2021 COMPARISON: CT dated 08/13/2015 HISTORY: lower abd pain CT DLP: 1023 mGycm Automated exposure control for dose reduction was used. TECHNIQUE: Helical acquisition of images was performed from the lung bases through the pelvis withou t IV contrast. FINDINGS: LUNG BASES: No significant abnormality is appreciated. LIVER/GB: The hepatic dome is not included in the scan. No definite focal lesion identified in the vi sualized portion of the liver. Unremarkable gallbladder. PANCREAS: No significant abnormality is seen. SPLEEN: No significant abnormality is seen. ADRENALS: No significant abnormality is seen. KIDNEYS: 3 mm right mid pole nonobstructing renal calculus with multiple variable sized left renal ca lculi measuring up to 7 mm at the lower pole of the left kidney. Suspected left renal cysts, suboptim ally assessed by this nonenhanced CT scan. No hydroureter or hydronephrosis. FREE AIR: No free air is visualized RETROPERITONEAL ADENOPATHY: None visualized REPRODUCTIVE ORGANS: Enlarged prostate, please correlate with PSA level. Unremarkable seminal vesicle s. URINARY BLADDER: Nondistended and partially obscured by artifacts from the left hip prosthesis. PELVIC ADENOPATHY: No pathologically enlarged pelvic lymph nodes. OSSEOUS STRUCTURES: Left hip arthroplasty. No aggressive bone lesion. BOWEL: Unremarkable stomach, duodenum and small bowel. Fecal loading of the colon. Scattered uncompl icated colonic diverticulosis. OTHER: Scattered arterial atherosclerotic calcification. No sizable ascites. Right inguinal density l ikely related to previous inguinal hernia repair. Left inguinal hernia containing fat. IMPRESSION: Bilateral nonobstructing renal calculi measuring up to 7 mm at the lower pole of the left kidney as d escribed above. Suspected left renal cysts, suboptimally assessed by this CT scan. No hydroureter or hydronephrosis. Pyelonephritis or acute urinary tract infection cannot be excluded. Other findings as detailed above.
== END | disposition home or self-care (01) ==
LOC: RADCTMAIN 11:20
PROVIDERS: ATTEND Family Medicine
DX: N20.0 Calculus of kidney (principal)
CPT/HCPCS: 74176

== ENCOUNTER → 2021-08-21 | Outpatient (CLI) | payer OTHER | END | disposition home or self-care (01) | LOC: LABWHC1 08:52 | PROVIDERS: ATTEND Surgery Plastic and Reconstructive Surgery | DX: I11.9 Hypertensive heart disease without heart failure (principal); I44.4 Left anterior fascicular block; R94.31 Abnormal electrocardiogram [ECG] [EKG] | CPT/HCPCS: 93005 ==

== ENCOUNTER 2022-06-20 08:18 | Inpatient (IN) | payer BC, MEDICARE, OTHER ==
[2022-06-20] MEDS ORDERED: KETOROLAC 15 MG/ML 1 ML VIAL IVP STA (08:33)
[2022-06-20] MEDS ORDERED: HYDROmorphone 1 MG/ML 1 ML SYRINGE IVP STA (08:33)
--- NOTE | 2022-06-20 08:40 | ED ---
Abdominal Pain HPI - General Chief Complaint: Abdominal Pain Stated Complaint: Abd/Groin Pain Time Seen by Provider: 06/20/22 08:27 Source: patient, family, RN notes reviewed Mode of arrival: ambulatory Limitations: no limitations - History of Present Illness Initial Comments: This is a 66-year-old male who presents to the emergency department for left-s ided groin pain. Patient reports a history of an inguinal hernia over the last year. He discussed repair with Dr. Munoz, however he has been waiting for his new insurance to become active so he can have this repaired. States that over the last couple of days, the pain has gotten severe. He reports associated constipation. Denies any nausea or vomiting. He has been unable to control the pain at home. States that he feels like he has a hard area in the left groin. Denies any fevers, chills, sore throat, cough, dyspnea, chest pain, palpitations, nausea, vomiting, diarrhea, back pain, or headaches. MD Complaint: abdominal pain - Related Data Home Medications Medication Instructions Recorded Confirmed Celecoxib [CeleBREX] 200 mg PO DAILY 09/18/15 06/20/22 modafiniL [Provigil] 200 mg PO DAILY 09/18/15 06/20/22 ALPRAZolam [Xanax] 0.25 mg PO BID PRN 04/30/20 06/20/22 Fluticasone/Umeclidin/Vilanter 1 puff INHALATION RT-DAILY 06/20/22 06/20/22 [Trelegy Ellipta 100-62.5-25] Lisinopril-Hctz 20-12.5 mg 1 tab PO DAILY 06/20/22 06/20/22 [Zestoretic 20-12.5] Tamsulosin [Flomax] 0.4 mg PO HS 06/20/22 06/20/22 Allergies Allergy/AdvReac Type Severity Reaction Status Date / Time hydrocodone [From [place]] AdvReac Confusion Verified 06/20/22 10:22 morphine AdvReac Nausea & Verified 06/20/22 10:22 Vomiting Review of Systems ROS Statement: Those systems with pertinent positive or pertinent negative responses have been documented in the HPI. ROS Other: All systems not noted in ROS Statement are negative. Past Medical History Past Medical History: Prostate Disorder Additional Past Medical History / Comment(s): Kidney stone, hx. of sleep apnea- several sleep studies done. States in 2018 was in the hospital for some type of infection. States not sure what it was, but in the ICU for a couple of days. History of Any Multi-Drug Resistant Organisms: Other MDRO Past Surgical History: Appendectomy, Hernia Repair, Joint Replacement Additional Past Surgical History / Comment(s): LT SHANTEL, BILAT TKA, Bilat carpal tunnel, joint replacement both thumbs. Past Anesthesia/Blood Transfusion Reactions: No Reported Reaction Additional Past Anesthesia/Blood Transfusion Reaction / Comment(s): Takes longer to wake up. Past Psychological History: Anxiety Smoking Status: Never smoker Past Alcohol Use History: Occasional Past Drug Use History: None Reported - Past Family History Mother Family Medical History: Cancer Additional Family Medical History / Comment(s): KIDNEY Daughter(s) Family Medical History: Cancer Additional Family Medical History / Comment(s): BREAST General Exam Limitations: no limitations General appearance: alert, in distress Head exam: Present: atraumatic, normocephalic, normal inspection Respiratory exam: Present: normal lung sounds bilaterally. Absent: respiratory distress, wheezes, rales, rhonchi, stridor Cardiovascular Exam: Present: regular rate, normal rhythm, normal heart sounds. Absent: systolic murmur, diastolic murmur, rubs, gallop, clicks GI/Abdominal exam: Present: hernia (Nonreducible left inguinal hernia with severe overlying tenderness) Neurological exam: Present: alert, oriented X3, CN II-XII intact Psychiatric exam: Present: normal affect, normal mood Skin exam: Present: warm, dry, intact, normal color. Absent: rash Course Vital Signs 06/20/22 08:23 Temperature 97.7 F Pulse Rate 66 Respiratory 20 Rate Blood Pressure 129/86 O2 Sat by Pulse 97 Oximetry Medical Decision Making - Medical Decision Making This is a 66-year-old male who presents to the emergency department for left- sided groin pain. Was pt. sent in by a medical professional or institution? @ -No Did you speak to anyone other than the patient for history? @ -His Did you review nursing and triage notes? @ -Yes, and I agree, it is accurate with regards to the patient's symptoms. Were old charts reviewed? @ -No Differential Diagnosis? @ -Differential Abdominal Pain Men: Cholecystitis, diverticulosis, ischemic bowel, pancreatitis, hepatitis, UTI, gastroenteritis, AAA, incarcerated hernia, bowel obstruction, constipation, inflammatory bowel, hepatitis, peptic ulcer disease, splenic infarction, perforated viscus, testicular torsion, this is not meant to be an all-inclusive list EKG interpreted by me (3pt min.)? @ -Sinus bradycardia. Ventricular rate 51 bpm, WA interval 213 ms, QRS duration 116 ms, QTC [address] interpreted by me (1pt min.)? @ -Computed tomography scan of the abdomen and pelvis obtained. My interpretation identifies a left inguinal hernia containing a loop of bowel. What testing was considered but not performed? (CT, X-rays, U/S, labs)? Why? @ -None What meds were considered but not given? Why? @ -None Did you discuss the management of the patient with other professionals? @ -Yes, Dr. uMnoz, who accepts the patient for admission. Did you reconcile home meds? @ -No Was smoking cessation discussed for >3mins.? @ -No Was critical care preformed (if so, how long)? @ -No Were there social determinants of health that impacted care today? How? (Homelessness, low income, unemployed, alcoholism, drug addiction, tr ansportation, low edu. Level, literacy, decrease access to med. care, retirement, rehab)? @ -No Was there de-escalation of care discussed even if they declined? (Discuss DNR or withdrawal of care, Hospice)? @ -No What co-morbidities impacted this encounter? (DM, HTN, Smoking, COPD, CAD, Cancer, CVA, Hep., AIDS, mental health diagnosis, sleep apnea, morbid obesity)? @ -Morbid obesity, HTN Was patient admitted / discharged? @ -Admitted. Lab work obtained and found to be nonactionable. Computed tomography scan of the abdomen and pelvis does reveal a left inguinal hernia that appears to be larger than prior. This is noted to contain a portion of sigmoid colon with surrounding fat stranding. The inguinal hernia on exam is not reducible concerning for incarceration. Toradol and Dilauded administered for pain control. He was also given a dose of Zosyn for likely incarcerated inguinal hernia with blood cultures obtained prior. Case discussed Dr. Munoz, [facility], who accepts the patient for admission. Patient will be kept NPO for likely surgical intervention. Undiagnosed new problem with uncertain prognosis? @ -None Drug Therapy requiring intensive monitoring for toxicity (Heparin, Nitro, In sulin, Cardizem)? @ -None Were any procedures done? @ -None Diagnosis/symptom? @ -Incarcerated left inguinal hernia Acute, or Chronic, or Acute on Chronic? @ -Acute Uncomplicated (without systemic symptoms) or Complicated (systemic symptoms)? @ -Complicated Side effects of treatment? @ -None Exacerbation, Progression, or Severe Exacerbation] @ -Not applicable Poses a threat to life or bodily function? @ -Yes This case was discussed in detail with the attending ED physician, Dr. Rondon. Presentation, findings, and treatment plan discussed in detail as well. - Lab Data Result diagrams: 06/20/22 08:34 06/20/22 08:34 Lab Results 06/20/22 06/20/22 06/20/22 Range/Units 08:34 08:34 08:34 WBC 5.0 (3.8-10.6) k/uL RBC 5.17 (4.30-5.90) m/uL Hgb 15.8 (13.0-17.5) gm/dL Hct 46.2 (39.0-53.0) % MCV 89.3 (80.0-100.0) fL MCH 30.5 (25.0-35.0) pg MCHC 34.2 (31.0-37.0) g/dL RDW 12.4 (11.5-15.5) % Plt Count 186 (150-450) k/uL MPV 7.7 Neutrophils % 56 % Lymphocytes % 26 % Monocytes % 7 % Eosinophils % 8 % Basophils % 1 % Neutrophils # 2.8 (1.3-7.7) k/uL Lymphocytes # 1.3 (1.0-4.8) k/uL Monocytes # 0.3 (0-1.0) k/uL Eosinophils # 0.4 (0-0.7) k/uL Basophils # 0.1 (0-0.2) k/uL Sodium 138 (137-145) mmol/L Potassium 3.4 L (3.5-5.1) mmol/L Chloride 104 (98-107) mmol/L Carbon Dioxide 29 (22-30) mmol/L Anion Gap 5 mmol/L BUN 20 (9-20) mg/dL Creatinine 1.08 (0.66-1.25) mg/dL Est GFR (CKD-EPI)AfAm 83 (>60 ml/min/1.73 sqM) Est GFR (CKD-EPI)NonAf 72 (>60 ml/min/1.73 sqM) Glucose 90 (74-99) mg/dL Plasma Lactic Acid Deepak (0.7-2.0) mmol/L Calcium 8.7 (8.4-10.2) mg/dL Total Bilirubin 1.1 (0.2-1.3) mg/dL AST 31 (17-59) U/L ALT 23 (4-49) U/L Alkaline Phosphatase 48 (38-126) U/L C-Reactive Protein <0.5 (<1.0) mg/dL Total Protein 6.5 (6.3-8.2) g/dL Albumin 3.9 (3.5-5.0) g/dL Urine Color Yellow Urine Appearance Clear (Clear) Urine pH 5.5 (5.0-8.0) Ur Specific [place] 1.018 (1.001-1.035) Urine Protein Negative (Negative) Urine Glucose (UA) Negative (Negative) Urine Ketones Negative (Negative) Urine Blood Negative (Negative) Urine Nitrite Negative (Negative) Urine Bilirubin Negative (Negative) Urine Urobilinogen <2.0 (<2.0) mg/dL Ur Leukocyte Esterase Negative (Negative) 06/20/22 Range/Units 08:34 WBC (3.8-10.6) k/uL RBC (4.30-5.90) m/uL Hgb (13.0-17.5) gm/dL Hct (39.0-53.0) % MCV (80.0-100.0) fL MCH (25.0-35.0) pg MCHC (31.0-37.0) g/dL RDW (11.5-15.5) % Plt Count (150-450) k/uL MPV Neutrophils % % Lymphocytes % % Monocytes % % Eosinophils % % Basophils % % Neutrophils # (1.3-7.7) k/uL Lymphocytes # (1.0-4.8) k/uL Monocytes # (0-1.0) k/uL Eosinophils # (0-0.7) k/uL Basophils # (0-0.2) k/uL Sodium (137-145) mmol/L Potassium (3.5-5.1) mmol/L Chloride (98-107) mmol/L Carbon Dioxide (22-30) mmol/L Anion Gap mmol/L BUN (9-20) mg/dL Creatinine (0.66-1.25) mg/dL Est GFR (CKD-EPI)AfAm (>60 ml/min/1.73 sqM) Est GFR (CKD-EPI)NonAf (>60 ml/min/1.73 sqM) Glucose (74-99) mg/dL Plasma Lactic Acid Deepak 0.8 (0.7-2.0) mmol/L Calcium (8.4-10.2) mg/dL Total Bilirubin (0.2-1.3) mg/dL AST (17-59) U/L ALT (4-49) U/L Alkaline Phosphatase (38-126) U/L C-Reactive Protein (<1.0) mg/dL Total Protein (6.3-8.2) g/dL Albumin (3.5-5.0) g/dL Urine Color Urine Appearance (Clear) Urine pH (5.0-8.0) Ur Specific [place] (1.001-1.035) Urine Protein (Negative) Urine Glucose (UA) (Negative) Urine Ketones (Negative) Urine Blood (Negative) Urine Nitrite (Negative) Urine Bilirubin (Negative) Urine Urobilinogen (<2.0) mg/dL Ur Leukocyte Esterase (Negative) - Radiology Data Radiology results: report reviewed, image reviewed Disposition Clinical Impression: Incarcerated left inguinal hernia Disposition: ADMITTED IP TO THIS HOSP
[2022-06-20 08:52] LABS: Basophils # (A) 0.1 k/uL (0-0.2); Basophils % (A) 1 %; Eosinophils # (A) 0.4 k/uL (0-0.7); Eosinophils % (A) 8 %; HCT 46.2 % (39.0-53.0); HGB 15.8 gm/dL (13.0-17.5); Lymphocytes # (A) 1.3 k/uL (1.0-4.8); Lymphocytes % (A) 26 %; MCH 30.5 pg (25.0-35.0); MCHC 34.2 g/dL (31.0-37.0); MCV 89.3 fL (80.0-100.0); Mean Platelet Volume 7.7; Monocytes # (A) 0.3 k/uL (0-1.0); Monocytes % (A) 7 %; Neutrophils # (A) 2.8 k/uL (1.3-7.7); Neutrophils % (A) 56 %; Platelet Count 186 k/uL (150-450); RBC 5.17 m/uL (4.30-5.90); RDW 12.4 % (11.5-15.5)
[2022-06-20 09:07] LABS: ALT 23 U/L (4-49); AST 31 U/L (17-59); African American GFR (CKD) 83 (>60 ml/min/1.73 sqM); Albumin 3.9 g/dL (3.5-5.0); Alkaline Phosphatase 48 U/L (38-126); Anion Gap 5 mmol/L; Blood Urea Nitrogen 20 mg/dL (9-20); Calcium 8.7 mg/dL (8.4-10.2); Carbon Dioxide 29 mmol/L (22-30); Chloride 104 mmol/L (98-107); Glucose 90 mg/dL (74-99); Non-African American GFR(CKD) 72 (>60 ml/min/1.73 sqM); Potassium 3.4 mmol/L (3.5-5.1); Sodium 138 mmol/L (137-145); Total Bilirubin 1.1 mg/dL (0.2-1.3); Total Protein 6.5 g/dL (6.3-8.2)
[2022-06-20 09:19] LABS: Appearance,Urine Clear (Clear); Bilirubin,Urine Negative (Negative); Blood,Urine Negative (Negative); Color,Urine Yellow; Glucose,Urine (UA) Negative (Negative); Ketones,Urine Negative (Negative); Leukocyte Esterase,Urine Negative (Negative); Nitrite,Urine Negative (Negative); PH, Urine 5.5 (5.0-8.0); Protein,Urine Negative (Negative); Specific Gravity,Urine 1.018 (1.001-1.035); Urobilinogen,Urine <2.0 mg/dL (<2.0)
--- NOTE | 2022-06-20 09:27 | CT ---
EXAMINATION TYPE: CT abdomen pelvis w con DATE OF EXAM: 06/20/2022 COMPARISON: Prior CT July 01, 2021 HISTORY: LLQ pain, inguinal hernia CT DLP: 1780.7 mGycm, Automated Exposure Control for Dose Reduction was Utilized. CONTRAST: CT scan of the abdomen and pelvis is performed without oral but with IV Contrast, patient injected wi th 100 mL of Isovue 300. FINDINGS: LUNG BASES: Coronary artery calcification in the RCA distribution. LIVER/GB: Visualized liver is heterogeneously hypodense. Finding may be on basis of mild diffuse fatt y infiltration. PANCREAS: No significant abnormality is seen. SPLEEN: No significant abnormality is seen. ADRENALS: No significant abnormality is seen. KIDNEYS: Small left renal calculi redemonstrated. Approximate 6 calculi up measuring up to 9 mm in si ze again seen. There is symmetric respiratory uptake and excretion without hydronephrosis seen bilate rally. Single 3 mm right renal calculus coronal image 72 redemonstrated. Small simple appearing 1.7 c m thin-walled cyst left kidney delayed axial image 37 is noted. BOWEL: No suspicious small or large bowel dilatation. A few scattered colonic diverticula including at level of the herniated sigmoid colon. No free air. PROSTATE/SEMINAL VESICLES: Prostate gland measures upper limits of normal in size. LYMPH NODES: No greater than 1cm abdominal or pelvic lymph nodes are appreciated. OSSEOUS STRUCTURES: Metallic hardware from left hip arthroplasty is redemonstrated causing streak art ifact limiting evaluation of pelvic structures. OTHER: Persistent left inguinal hernia now large in size and now containing portion of sigmoid colon. Mild fat stranding at this level is seen. IMPRESSION: Enlarging left inguinal hernia now containing portion of sigmoid colon which has mild fat stranding. This is nonspecific and could reflect inflammatory or ischemic change. Correlate clinical ly.
[2022-06-20] MEDS ORDERED: PIPERACILLIN-TAZOBACTAM 3.375 GM in SODIUM CHLORIDE 0.9% 100 ML IVPB STA (10:04)
[2022-06-20] MEDS ORDERED: HEPARIN SODIUM,PORCINE/PF 5,000 UNIT/0.5 ML SYRINGE SQ PRN (10:16)
[2022-06-20] MEDS ORDERED: ONDANSETRON 4 MG/2 ML VIAL IVP PRN (10:20)
[2022-06-20] MEDS ORDERED: NALOXONE 0.4 MG/ML 1 ML VIAL IV PRN (10:20)
[2022-06-20] MEDS ORDERED: HYDROmorphone 0.5 MG/0.5 ML SYRINGE IVP PRN (10:20)
[2022-06-20] MEDS ORDERED: SODIUM CHLORIDE 0.9% 1,000 ML IV STA (10:20)
[2022-06-20 10:42] LABS: C Reactive Protein <0.5 mg/dL (<1.0)
[2022-06-20] MEDS: HYDROmorphone 1 MG/ML 1 ML SYRINGE IVP PRN ×2 (13:07→19:47)
[2022-06-20] MEDS ORDERED: ACETAMINOPHEN TAB 500 MG TAB PO STA (15:29)
[2022-06-20] MEDS ORDERED: TAMSULOSIN 0.4 MG CAP.ER.24H PO STA (15:29)
--- NOTE | 2022-06-20 15:29 | P.GSHP ---
History of Present Illness H&P Date: 06/20/22 CHIEF COMPLAINT: Small bowel obstruction due to incarcerated left inguinal hernia HISTORY OF PRESENT ILLNESS: The patient is a 66-year-old male who presents with increased swelling along the left groin including constipation. Patient reports last bowel movement was yesterday. After which she had severe pain and swelling of the left groin. He presented to the emergency room breath attempted reduction was unsuccessful. Additional diagnostic studies obtained demonstrating large bowel obstruction due to incarcerated left inguinal hernia. PAST MEDICAL HISTORY: Please see list. PAST SURGICAL HISTORY: Please see list. MEDICATIONS: Please see list. ALLERGIES: Please see list. SOCIAL HISTORY: No illicit drug use FAMILY HISTORY: No reports of Crohn disease or ulcerative colitis. REVIEW OF ORGAN SYSTEMS: CONSTITUTIONAL: No reports of fevers or chills. No reports of weight loss despite prior attempts. GI: Denies any blood in stools or constipation. PHYSICAL EXAM: VITAL SIGNS: Stable GENERAL: Well-developed pleasant male in no acute distress. HEENT: No scleral icterus. Extraocular movements grossly intact. Moist buccal mucosa. NECK: Supple without lymphadenopathy. CHEST: Unlabored respirations. Equal bilateral excursions. CARDIOVASCULAR: Regular rate and rhythm. Distal 2+ pulses. ABDOMEN: Soft, nondistended. No peritoneal signs. Palpable defect of the right groin. MUSCULOSKELETAL: No clubbing, cyanosis, or edema. ASSESSMENT: 1. Small bowel obstruction due to incarcerated left inguinal hernia PLAN: 1. Recommend proceeding with emergent robotic inguinal repair with mesh with possible bilateral approach. 2. Benefits and risks of surgical intervention was discussed including possibility of open technique. 3. DVT prophylaxis. 4. Antibiotic prophylaxis. 5. Non narcotic pain management including abdominal wall block described 6. Blood sugar glucose described. 7. Weight loss management described. 8. EKG ordered 9. Patient's elevated risk due to pre-existing obesity, cardiac disease for emergency surgery Past Medical History Past Medical History: Prostate Disorder Additional Past Medical History / Comment(s): Kidney stone, hx. of sleep apnea- several sleep studies done. States in 2018 was in the hospital for some type of infection. States not sure what it was, but in the ICU for a couple of days. History of Any Multi-Drug Resistant Organisms: Other MDRO Past Surgical History: Appendectomy, Hernia Repair, Joint Replacement Additional Past Surgical History / Comment(s): LT SHANETL, BILAT TKA, Bilat carpal tunnel, joint replacement both thumbs. Past Anesthesia/Blood Transfusion Reactions: No Reported Reaction Additional Past Anesthesia/Blood Transfusion Reaction / Comment(s): Takes longer to wake up. Past Psychological History: Anxiety Smoking Status: Never smoker Past Alcohol Use History: Occasional Past Drug Use History: None Reported - Past Family History Mother Family Medical History: Cancer Additional Family Medical History / Comment(s): KIDNEY Daughter(s) Family Medical History: Cancer Additional Family Medical History / Comment(s): BREAST Medications and Allergies Home Medications Medication Instructions Recorded Confirmed Type Celecoxib [CeleBREX] 200 mg PO DAILY 09/18/15 06/20/22 History modafiniL [Provigil] 200 mg PO DAILY 09/18/15 06/20/22 History ALPRAZolam [Xanax] 0.25 mg PO BID PRN 04/30/20 06/20/22 History Fluticasone/Umeclidin/Vilanter 1 puff INHALATION RT-DAILY 06/20/22 06/20/22 History [Trelegy Ellipta 100-62.5-25] Lisinopril-Hctz 20-12.5 mg 1 tab PO DAILY 06/20/22 06/20/22 History [Zestoretic 20-12.5] Tamsulosin [Flomax] 0.4 mg PO HS 06/20/22 06/20/22 History Allergies Allergy/AdvReac Type Severity Reaction Status Date / Time hydrocodone [From [place]] AdvReac Confusion Verified 06/20/22 10:22 morphine AdvReac Nausea & Verified 06/20/22 10:22 Vomiting Surgical - Exam Vital Signs Temp Pulse Resp BP Pulse Ox 97.7 F 66 20 129/86 97 06/20/22 08:23 06/20/22 08:23 06/20/22 08:23 06/20/22 08:23 06/20/22 08:23 Results - Labs 06/20/22 08:34 06/20/22 08:34 Abnormal Lab Results - Last 24 Hours (Table) 06/20/22 Range/Units 08:34 Potassium 3.4 L (3.5-5.1) mmol/L Diabetes panel 06/20/22 Range/Units 08:34 Sodium 138 (137-145) mmol/L Potassium 3.4 L (3.5-5.1) mmol/L Chloride 104 (98-107) mmol/L Carbon Dioxide 29 (22-30) mmol/L BUN 20 (9-20) mg/dL Creatinine 1.08 (0.66-1.25) mg/dL Glucose 90 (74-99) mg/dL Calcium 8.7 (8.4-10.2) mg/dL AST 31 (17-59) U/L ALT 23 (4-49) U/L Alkaline Phosphatase 48 (38-126) U/L Total Protein 6.5 (6.3-8.2) g/dL Albumin 3.9 (3.5-5.0) g/dL Calcium panel 06/20/22 Range/Units 08:34 Calcium 8.7 (8.4-10.2) mg/dL Albumin 3.9 (3.5-5.0) g/dL Pituitary panel 06/20/22 Range/Units 08:34 Sodium 138 (137-145) mmol/L Potassium 3.4 L (3.5-5.1) mmol/L Chloride 104 (98-107) mmol/L Carbon Dioxide 29 (22-30) mmol/L BUN 20 (9-20) mg/dL Creatinine 1.08 (0.66-1.25) mg/dL Glucose 90 (74-99) mg/dL Calcium 8.7 (8.4-10.2) mg/dL Adrenal panel 06/20/22 Range/Units 08:34 Sodium 138 (137-145) mmol/L Potassium 3.4 L (3.5-5.1) mmol/L Chloride 104 (98-107) mmol/L Carbon Dioxide 29 (22-30) mmol/L BUN 20 (9-20) mg/dL Creatinine 1.08 (0.66-1.25) mg/dL Glucose 90 (74-99) mg/dL Calcium 8.7 (8.4-10.2) mg/dL Total Bilirubin 1.1 (0.2-1.3) mg/dL AST 31 (17-59) U/L ALT 23 (4-49) U/L Alkaline Phosphatase 48 (38-126) U/L Total Protein 6.5 (6.3-8.2) g/dL Albumin 3.9 (3.5-5.0) g/dL
[2022-06-20] MEDS ORDERED: IV FLUID CONTINUATION 300 ML IV ONE (16:22)
[2022-06-20] MEDS ORDERED: ROCURONIUM 10 MG/ML (5 ML VIAL) IV ONE (16:30)
[2022-06-20] MEDS ORDERED: fentaNYL (PF) 50 MCG/ML 2 ML AMP ONE (16:30)
[2022-06-20] MEDS ORDERED: SUGAMMADEX SODIUM 200 MG/2 ML SDV IV ONE (16:30)
[2022-06-20] MEDS ORDERED: LIDOCAINE 2% INJ 20 MG/ML (2 ML VIAL) ONE (16:30)
[2022-06-20] MEDS ORDERED: PROPOFOL 10 MG/ML 20 ML VIAL IV ONE (16:30)
[2022-06-20] MEDS ORDERED: MIDAZOLAM 2 MG/2 ML VIAL ONE (16:30)
[2022-06-20] MEDS ORDERED: SUCCINYLCHOLINE CHLORIDE 200 MG/10 ML VIAL IV ONE (16:30)
[2022-06-20] MEDS ORDERED: GLYCOPYRROLATE 0.2 MG/ML 2 ML VIAL ONE (16:30)
[2022-06-20] MEDS ORDERED: BUPIVACAIN-EPI 0.5%-1:200,000 30 ML VIAL SQ ONE (16:36)
[2022-06-20] MEDS ORDERED: LACTATED RINGERS 1,000 ML IV ONE (17:48)
[2022-06-20] MEDS: MEPERIDINE 50 MG/ML SYRINGE IVP ONE ×2 (18:39→18:50)
[2022-06-20] MEDS ORDERED: ALPRAZolam 0.25 MG TAB PO PRN (19:12)
--- NOTE | 2022-06-20 19:25 | P.OP ---
Date of Procedure: 06/20/22 Description of Procedure: SURGEON: REYNA GÓMEZ MD PREOPERATIVE DIAGNOSES: 1. Acute small bowel obstruction due to recurrent incarcerated left inguinal hernia 2. Hypertensive heart disease 3. Morbid obesity due to excess calories, BMI 35.9 4. History of bilateral inguinal hernias 5. Pre-existing history of sepsis 6. Abnormal EKG POSTOPERATIVE DIAGNOSES: 1. Recurrent left inguinal hernia, incarcerated with sigmoid colon, partial large bowel obstruction 2. Hypertensive heart disease 3. Morbid obesity due to excess calories, BMI 35.9 4. History of bilateral inguinal hernias 5. Pre-existing history of sepsis 6. Left inguinal lipoma, subfascial, 10 x 6 cm 7. Sigmoid diverticulosis OPERATION: 1. Robotic-assisted da Letty Xi laparoscopic reduction repair of recurrent incarcerated left indirect inguinal hernia with mesh, 10 x [address] ANESTHESIA: General with local anesthetic ESTIMATED BLOOD LOSS: 5 mL. SPECIMENS: 1. Incarcerated left inguinal hernia sac and lipoma, subfascial COMPLICATIONS: None. FINDINGS: 1. Incarcerated left inguinal hernia 4 x 3 cm, Nyhus IV, incorporating sigmoid colon with obstruction 2. No recurrent right inguinal hernia 3. Sigmoid colon incarceration reduced without ischemia or infarction from left inguinal hernia 4. Sigmoid diverticulosis moderate 5. Obturator hernia, less than 1 cm INDICATIONS: The patient is a 66-year-old male who presents with history of bilateral inguinal hernia now with recurrent left acute incarceration and bowel obstruction. He reports changes in bowel habits as a result. Emergent surgical intervention was described as patient presented acutely to the emergency room. Laparoscopic versus open and robotic approaches were discussed including bilateral approach. Benefits and risks including bleeding, infection, chronic groin pain, sterility were reviewed. Placement of mesh was also described. Informed consent was obtained. DESCRIPTION: In the preoperative area, an abdominal block was placed per anesthesia. The patient was brought to the operating room and initially laid in supine position. The abdomen had been prepped and draped in standard sterile fashion. Ioban draping was also placed. Prior to incision, a timeout protocol was confirmed with surgical team regarding patient's name including procedures to be performed. Initial positioning for the robotic assisted ports were selected 15 cm superior to the target anatomy. A 0 degree 5 mm laparoscopic trocar entry was performed at the left upper quadrant. The abdomen was insufflated to 15 mmHg which he tolerated well. Diagnostic laparoscopy demonstrated no injury to bowel, viscera or mesentery. Incarcerated sigmoid colon was found along the left groin. No recurrent hernia was found along the right. Next, along the epigastrium, 8 mm robot trocar was placed. An 8-mm robotic trocar was placed under direct visualization at the right upper quadrant. An 8 mm port was placed at the left upper quadrant. All trocars were positioned between 10-cm apart from each other. An accessory 12 mm trocar was placed at the right upper quadrant. The Rocket[employer] XI robot was primed, draped, prepared for docking along upper abdomen of the patient. The patient was positioned 21 steep Trendelenburg position. I then went to the [employer]ocket[employer] Xi console. The assistant field hockey coach was at bedside for exchange of the robot arms and equipment. Attention was brought to the left groin. A very large left inguinal defect was confirmed as the sigmoid colon was reduced from the left groin after direct pressure over the inguinal area for over 5 minutes. Next, the left groin defect was measured 4 x 3-cm hernia with the sac extending to the scrotum. A large indirect hernia was confirmed, Nyhus type IV. The left inguinal hernia sac was evaginated whereby the peritoneum was scored using the Stephanie and hook cautery. As the hernia sac extended into the groin, complete resection of the sac was done. The peritoneal sac of the hernia was stripped. The sac was resected and then passed off for further pathological anal ysis. The size of the hernia defect was 4 cm x 4 cm with intraoperative films obtained. Subfascial left inguinal lipoma 10 x 6 cm was resected with sac. Using a nonabsorbable 2-0 VLOC, the peritoneal defect of the left inguinal hernia site was closed using a running suture. The defect was found to be completely closed with complete reduction of the left direct inguinal hernia was confirmed. As an onlay, an 10 x [address] mesh by [employer] was cut in three quarters and entered into the abdominal cavity via the 12 mm trocar. The mesh was tacked to the pelvis using 2-0 VLOC 9-inch length sutures. A final endoscopic imaging was obtained. The robot was undocked from the patient's bedside. I then rescrubbed into the case. 12 mm trocar site was oversewn using 0 Vicryl and Ron Weir. Insufflation was released from the abdominal cavity and all instruments were removed from the abdominal cavity. Pressure was applied along the left groin. The rest of incisions were reapproximated using 4-0 Monocryl in a running subcuticular fashion. Local anesthetic was placed along the incision including for a bilateral groin block. Incisions were cleansed using dilute hydrogen peroxide. Liquid glue was applied to the skin. At the end of the procedure, the needle, sponge and instrument counts had been verified correct by the surgical oncologist. The patient had tolerated the procedure well and was taken to the postanesthesia care unit in stable condition. Intraoperative images were reviewed with the patient's family who were pleased with the level of care. Plan - Discharge Summary New Discharge Prescriptions: No Action modafiniL [Provigil] 200 mg PO DAILY Celecoxib [CeleBREX] 200 mg PO DAILY ALPRAZolam [Xanax] 0.25 mg PO BID PRN PRN Reason: Anxiety Lisinopril-Hctz 20-12.5 mg [Zestoretic 20-12.5] 1 tab PO DAILY Tamsulosin [Flomax] 0.4 mg PO HS Fluticasone/Umeclidin/Vilanter [Trelegy Ellipta 100-62.5-25] 1 puff INHALATION RT-DAILY Discharge Medication List Celecoxib [CeleBREX] 200 mg PO DAILY 09/18/15 [History] modafiniL [Provigil] 200 mg PO DAILY 09/18/15 [History] ALPRAZolam [Xanax] 0.25 mg PO BID PRN 04/30/20 [History] Fluticasone/Umeclidin/Vilanter [Trelegy Ellipta 100-62.5-25] 1 puff INHALATION RT-DAILY 06/20/22 [History] Lisinopril-Hctz 20-12.5 mg [Zestoretic 20-12.5] 1 tab PO DAILY 06/20/22 [History] Tamsulosin [Flomax] 0.4 mg PO HS 06/20/22 [History] Follow up Appointment(s)/Referral(s): None,Stated [REFERRING] - 1-2 days
[2022-06-20] MEDS: TAMSULOSIN 0.4 MG CAP.ER.24H PO SCH (19:48)
[2022-06-20] MEDS ORDERED: ACETAMINOPHEN IV (For NPO) 1,000 MG in EMPTY BAG 1 BAG IVPB ONE (20:00)
[2022-06-20] MEDS: KETOROLAC 15 MG/ML 1 ML VIAL IVP SCH (22:51)
[2022-06-21] MEDS: HYDROmorphone 1 MG/ML 1 ML SYRINGE IVP PRN ×5 (01:16→22:01)
[2022-06-21] MEDS: SODIUM CHLORIDE 0.9% 1,000 ML IV SCH ×5 (01:16→23:53)
[2022-06-21] MEDS: KETOROLAC 15 MG/ML 1 ML VIAL IVP SCH ×4 (06:40→23:52)
[2022-06-21] MEDS: SYMBICORT 80-4.5 MCG INHALER INHALATION SCH ×2 (08:07→20:38)
[2022-06-21] MEDS: IPRATROPIUM 0.5 MG/2.5 ML NEBU INHALATION SCH ×4 (08:07→20:38)
--- NOTE | 2022-06-21 09:34 | P.PN ---
Progress Note - Text Progress Note Date: 06/21/22 Patient still complaints of abdominal pain. He received Dilaudid overnight. He's had no significant bowel function. On exam vital signs are stable. Abdomen soft. Status post repair of left incarcerated inguinal hernia creating valve structure. Patient will continue supportive care. Despite discharged home tomorrow.
[2022-06-21] MEDS: ENOXAPARIN 30 MG/0.3 ML SYRINGE SQ SCH (10:51)
[2022-06-21] MEDS: LISINOPRIL-HCTZ 20-12.5 MG 1 EACH TAB PO SCH (10:52)
[2022-06-21] MEDS: MELOXICAM 7.5 MG TAB PO SCH (10:52)
[2022-06-21] MEDS: TAMSULOSIN 0.4 MG CAP.ER.24H PO SCH ×2 (10:52→20:40)
[2022-06-21] MEDS: PANTOPRAZOLE 40 MG/10 ML VIAL IV SCH (11:06)
[2022-06-21] MEDS: ACETAMINOPHEN TAB 500 MG TAB PO SCH ×2 (18:46→23:53)
[2022-06-21] MEDS: GABAPENTIN 300 MG CAP PO SCH ×2 (18:48→20:37)
[2022-06-21] MEDS: POTASSIUM CHLORIDE ER 20 MEQ TAB.ER PO SCH ×2 (20:40→22:01)
[2022-06-22] MEDS: KETOROLAC 15 MG/ML 1 ML VIAL IVP SCH ×3 (05:43→16:57)
[2022-06-22] MEDS: ACETAMINOPHEN TAB 500 MG TAB PO SCH ×4 (05:53→22:45)
[2022-06-22] MEDS: SYMBICORT 80-4.5 MCG INHALER INHALATION SCH ×2 (08:23→22:07)
[2022-06-22] MEDS: PANTOPRAZOLE 40 MG/10 ML VIAL IV SCH (08:23)
[2022-06-22] MEDS: IPRATROPIUM 0.5 MG/2.5 ML NEBU INHALATION SCH ×4 (08:24→22:07)
[2022-06-22] MEDS: ENOXAPARIN 30 MG/0.3 ML SYRINGE SQ SCH (09:08)
[2022-06-22] MEDS: TAMSULOSIN 0.4 MG CAP.ER.24H PO SCH ×2 (09:09→21:02)
[2022-06-22] MEDS: GABAPENTIN 300 MG CAP PO SCH ×3 (09:09→21:02)
[2022-06-22] MEDS: LISINOPRIL-HCTZ 20-12.5 MG 1 EACH TAB PO SCH (09:09)
[2022-06-22] MEDS: MELOXICAM 7.5 MG TAB PO SCH (09:09)
[2022-06-22 10:02] LABS: African American GFR (CKD) 81.8 (60.0-200.0); Albumin 3.6 g/dL (3.8-4.9); Albumin/Globulin Ratio 1.89 (1.60-3.17); Anion Gap 7.9 mmol/L (10.00-18.00); BUN/Creat Ratio 15.55 Ratio (12.00-20.00); Blood Urea Nitrogen 17.1 mg/dL (9.0-27.0); Calcium 8.4 mg/dL (8.7-10.3); Carbon Dioxide 24.1 mmol/L (20.0-27.5); Globulin 1.9 g/dL (1.6-3.3); Non-African American GFR(CKD) 70.6 (60.0-200.0); Potassium 4.3 mmol/L (3.5-5.5); Total Bilirubin 0.6 mg/dL (0.30-1.20); Total Protein 5.5 g/dL (6.2-8.2)
[2022-06-22 10:05] LABS: Basophils # (A) 0.05 X 10*3/uL (0.00-0.10); Basophils % (A) 0.9 %; Eosinophils % (A) 6.9 %; HCT 40.2 % (39.6-50.0); HGB 13.8 g/dL (13.0-17.0); Immature Grans, Automated 0.2 %; Lymphocytes # (A) 1.41 X 10*3/uL (0.90-5.00); Lymphocytes % (A) 24.2 %; MCH 30.8 pg (27.0-32.0); MCHC 34.3 g/dL (32.0-37.0); MCV 89.7 fL (80.0-97.0); Mean Platelet Volume 9.9 fL (9.5-12.2); Monocytes # (A) 0.56 X 10*3/uL (0.20-1.00); Monocytes % (A) 9.6 %; NRBC Per 100 WBC 0 /100 WBCS (0.0-0.0); Neutrophils % (A) 58.2 %; Platelet Count 173 X 10*3/uL (140-440); RBC 4.48 X 10*6/uL (4.40-5.60); RDW 12.2 % (11.5-14.5); WBC 5.83 X 10*3/uL (4.50-10.00)
[2022-06-22] MEDS: SODIUM CHLORIDE 0.9% 1,000 ML IV SCH ×2 (10:33→16:56)
--- NOTE | 2022-06-22 11:25 | P.PN ---
Progress Note - Text Progress Note Date: 06/22/22 The patient feels better today. He states his pain is improved. The patient had 2 positive blood cultures. He started on IV antibiotic therapy. On exam vital signs are stable. Abdomen soft. Patient would have been discharged home except for his positive blood culture. We will continue IV antibiotic. He'll also go home the next 24-48 hours.
[2022-06-23] MEDS: SODIUM CHLORIDE 0.9% 1,000 ML IV SCH ×2 (02:05→08:55)
[2022-06-23] MEDS: ACETAMINOPHEN TAB 500 MG TAB PO SCH ×2 (05:19→11:49)
[2022-06-23] MEDS: HYDROmorphone 1 MG/ML 1 ML SYRINGE IVP PRN (05:43)
[2022-06-23 07:15] VITALS: BP 148/90; RESP 18; TEMP 97.9
[2022-06-23] MEDS: SYMBICORT 80-4.5 MCG INHALER INHALATION SCH (08:33)
[2022-06-23] MEDS: IPRATROPIUM 0.5 MG/2.5 ML NEBU INHALATION SCH ×2 (08:33→12:07)
[2022-06-23] MEDS: PANTOPRAZOLE 40 MG/10 ML VIAL IV SCH (08:55)
[2022-06-23] MEDS: MELOXICAM 7.5 MG TAB PO SCH (08:55)
[2022-06-23] MEDS: GABAPENTIN 300 MG CAP PO SCH (08:55)
[2022-06-23] MEDS: TAMSULOSIN 0.4 MG CAP.ER.24H PO SCH (08:55)
[2022-06-23] MEDS: LISINOPRIL-HCTZ 20-12.5 MG 1 EACH TAB PO SCH (08:55)
[2022-06-23] MEDS: ENOXAPARIN 30 MG/0.3 ML SYRINGE SQ SCH (08:55)
[2022-06-23 12:17] VITALS: PULSE 84
[2022-06-23 13:24] LABS: Basophils % (A) 1 %; Eosinophils # (A) 0.4 k/uL (0-0.7); Eosinophils % (A) 8 %; HGB 14.5 gm/dL (13.0-17.5); Lymphocytes # (A) 1.1 k/uL (1.0-4.8); Lymphocytes % (A) 23 %; MCH 31.1 pg (25.0-35.0); MCHC 34.5 g/dL (31.0-37.0); MCV 90.2 fL (80.0-100.0); Mean Platelet Volume 7.9; Monocytes # (A) 0.2 k/uL (0-1.0); Monocytes % (A) 5 %; Neutrophils # (A) 3.2 k/uL (1.3-7.7); Neutrophils % (A) 63 %; Platelet Count 174 k/uL (150-450); RBC 4.66 m/uL (4.30-5.90); RDW 12.4 % (11.5-15.5); WBC 5.1 k/uL (3.8-10.6)
[2022-06-23 13:37] LABS: ALT 24 U/L (4-49); AST 36 U/L (17-59); African American GFR (CKD) >90 (>60 ml/min/1.73 sqM); Albumin 3.6 g/dL (3.5-5.0); Albumin/Globulin Ratio 1.4; Alkaline Phosphatase 47 U/L (38-126); Anion Gap 11 mmol/L; Blood Urea Nitrogen 15 mg/dL (9-20); C Reactive Protein 2.5 mg/dL (<1.0); Calcium 8.3 mg/dL (8.4-10.2); Carbon Dioxide 22 mmol/L (22-30); Chloride 103 mmol/L (98-107); Globulin 2.5 g/dL; Glucose 109 mg/dL (74-99); Non-African American GFR(CKD) 84 (>60 ml/min/1.73 sqM); Potassium 3.8 mmol/L (3.5-5.1); Sodium 136 mmol/L (137-145); Total Bilirubin 0.6 mg/dL (0.2-1.3); Total Protein 6.1 g/dL (6.3-8.2)
--- NOTE | 2022-06-23 14:06 | P.PN ---
Subjective Progress Note Date: 06/23/22 CHIEF COMPLAINT: Incarcerated left inguinal hernia HISTORY OF PRESENT ILLNESS: Patient is postop day #3 status post Robotic- assisted da Letty Xi laparoscopic reduction repair of recurrent incarcerated left indirect inguinal hernia with mesh. Patient reports his pain is controlled. He denies any nausea or vomiting. He's having flatus no bowel movement. Is currently on a regular diet. He's had 2 positive blood cultures. Blood culture growing alpha hemolytic Streptococcus and Staphylococcus epider midis. Patient seen by infectious disease. Patient currently on antibiotics. Afebrile. WBC is 5.1 hgb 14.5 platelets 174 sodium 136 potassium 3.8 creatinine 0.96 PHYSICAL EXAM: VITAL SIGNS: Reviewed GENERAL: Well-developed in no acute distress. HEENT: No sclera icterus. Extraocular movements grossly intact. Moist buccal mucosa. Head is atraumatic, normocephalic. Hears conversational speech. No nasal drainage. NECK: Supple without lymphadenopathy. CHEST: Non-labored respirations and equal bilateral excursions. CARDIOVASCULAR: Palpable 2+ radial pulses. ABDOMEN: Soft. Nondistended. Incision site is clean dry and intact MUSCULOSKELETAL: No clubbing or cyanosis. NEUROLOGIC: No focal or lateralizing signs. Cranial nerves II through XII grossly intact. PSYCH: Appropriate affect. Alert and oriented to person, place and time. SKIN: Well perfused. Good skin turgor. ASSESSMENT: 1. Recurrent left inguinal hernia, incarcerated with sigmoid colon, partial large bowel obstruction 2. Hypertensive heart disease 3. Morbid obesity due to excess calories, BMI 35.9 4. History of bilateral inguinal hernias 5. Pre-existing history of sepsis 6. Left inguinal lipoma, subfascial, 10 x 6 cm 7. Sigmoid diverticulosis 8. Bacteremia PLAN: -Awaiting discharge antibiotic recommendations per infectious disease -Continue supportive care -Continue pain management -Continue regular diet -Discontinue IV fluids -Encouraged patient ambulate -DVT prophylaxis Love[employer]dy[employer] Physician Prosthetist note has been reviewed by physician. Signing provider agrees with the documented findings, assessment, and plan of care. Objective - Vital Signs Vital signs: Vital Signs Temp 97.9 F 06/23/22 06:47 Pulse 84 06/23/22 12:17 Resp 18 06/23/22 06:47 BP 148/90 06/23/22 06:47 Pulse Ox 95 06/23/22 08:37 FiO2 Intake & Output 04/30/23 05/01/23 05/01/23 18:59 06:59 18:59 Intake Total 1080 Balance 1080 Intake: Oral 1080 Other: # Voids 3 5 - Labs CBC & Chem 7: 06/23/22 13:04 06/23/22 13:04 Labs: Abnormal Lab Results - Last 24 Hours (Table) 06/23/22 Range/Units 13:04 Sodium 136 L (137-145) mmol/L Glucose 109 H (74-99) mg/dL Calcium 8.3 L (8.4-10.2) mg/dL C-Reactive Protein 2.5 H (<1.0) mg/dL Total Protein 6.1 L (6.3-8.2) g/dL Microbiology - Last 24 Hours (Table) 06/20/22 10:30 Blood Culture Gram Stain - Final Blood Blood Culture - Final Coagulase Negative Staph 06/20/22 10:45 Blood Culture Gram Stain - Final Blood Blood Culture - Final Alpha Hemolytic Streptococcus Staphylococcus epidermidis
--- NOTE | 2022-06-23 14:21 | P.DS ---
Providers Date of admission: 06/20/22 10:17 Expected date of discharge: 06/23/22 Attending physician: Beverly Munoz Consults: 06/20/22 10:16 Consult Physician Routine Consulting Provider: [facility] Consult Reason/Comments: Regional block Do you want consulting provider notified?: Yes 06/22/22 16:16 Consult Physician Routine Consulting Provider: Anam Ahumada Consult Reason/Comments: Positive blood cultures Do you want consulting provider notified?: Yes, Notify in am Primary care physician: Luigi Lara Hospital Course: Discharge diagnosis 1. Recurrent left inguinal hernia, incarcerated with sigmoid colon, partial large bowel obstruction 2. Hypertensive heart disease 3. Morbid obesity due to excess calories, BMI 35.9 4. History of bilateral inguinal hernias 5. Pre-existing history of sepsis 6. Left inguinal lipoma, subfascial, 10 x 6 cm 7. Sigmoid diverticulosis 8. Bacteremia Hospital course The patient is a 66-year-old male who presents with history of bilateral inguinal hernia now with recurrent left acute incarceration and bowel obstruction. He reports changes in bowel habits as a result. Patient is status post Robotic-assisted da Letty Xi laparoscopic reduction repair of recurrent incarcerated left indirect inguinal hernia with mesh. Patient was found to have positive blood cultures. Infectious disease was consulted. Infectious diseases recommending Augmentin for 1 week at discharge with outpatient follow-up and repeat blood culture in 1 week. Patient reports his pain is controlled. He is tolerating diet. He is having flatus. He is afebrile. He has been up and ambulating. He is stable for discharge. Physician Boiler Coverer Helper note has been reviewed by physician. Signing provider agrees with the documented findings, assessment, and plan of care. Patient Condition at Discharge: Stable Plan - Discharge Summary Discharge Rx Participant: No New Discharge Prescriptions: New Acetaminophen Tab [Tylenol Tab] 1,000 mg PO Q6HR PRN #30 tablet PRN Reason: Pain Cyclobenzaprine [Flexeril] 10 mg PO TID #30 tab Simethicone [Gas-X] 125 mg PO AC-TID PRN #20 capsule PRN Reason: Pain Amoxic-Pot Clav 875-125Mg [Augmentin 875-125] 1 tab PO Q12HR 7 Days #14 tab Continue modafiniL [Provigil] 200 mg PO DAILY Celecoxib [CeleBREX] 200 mg PO DAILY ALPRAZolam [Xanax] 0.25 mg PO BID PRN PRN Reason: Anxiety Lisinopril-Hctz 20-12.5 mg [Zestoretic 20-12.5] 1 tab PO DAILY Tamsulosin [Flomax] 0.4 mg PO HS Fluticasone/Umeclidin/Vilanter [Trelegy Ellipta 100-62.5-25] 1 puff INHALATION RT-DAILY Discharge Medication List Celecoxib [CeleBREX] 200 mg PO DAILY 09/18/15 [History] modafiniL [Provigil] 200 mg PO DAILY 09/18/15 [History] ALPRAZolam [Xanax] 0.25 mg PO BID PRN 04/30/20 [History] Fluticasone/Umeclidin/Vilanter [Trelegy Ellipta 100-62.5-25] 1 puff INHALATION RT-DAILY 06/20/22 [History] Lisinopril-Hctz 20-12.5 mg [Zestoretic 20-12.5] 1 tab PO DAILY 06/20/22 [History] Tamsulosin [Flomax] 0.4 mg PO HS 06/20/22 [History] Acetaminophen Tab [Tylenol Tab] 1,000 mg PO Q6HR PRN #30 tablet 06/21/22 [Rx] Cyclobenzaprine [Flexeril] 10 mg PO TID #30 tab 06/21/22 [Rx] Simethicone [Gas-X] 125 mg PO AC-TID PRN #20 capsule 06/21/22 [Rx] Amoxic-Pot Clav 875-125Mg [Augmentin 875-125] 1 tab PO Q12HR 7 Days #14 tab 06/23/22 [Rx] Follow up Appointment(s)/Referral(s): Beverly Munoz MD [STAFF PHYSICIAN] - 06/24/22 (TELEHEALTH) None,Stated [REFERRING] - 1-2 days Anam Ahumada MD [STAFF PHYSICIAN] - 1 Week Patient Instructions/Handouts: *Surgery [facility] - Managing Your Pain After Surgery Without Opioids, Laparoscopic Herniorrhaphy (IP), Inguinal Hernia Repair (GEN) Activity/Diet/Wound Care/Special Instructions: Using antibacterial soap. No lifting over 4 pounds 4 weeks, July 20June shower. No bathtub soaks for 2 weeks, July 04 Wear abdominal binder daily for comfort except for showering. Use ice along incisions for today to prevent swelling. Take tylenol, simethicone scheduled for 3 days for best pain relief Discharge Disposition: HOME SELF-CARE
== END 2022-06-23 15:24 | disposition home or self-care (01) | DRG 351 ==
LOC: EC 08:18 → 4SSUR 10:17
PROVIDERS: ADMIT Surgery Plastic and Reconstructive Surgery; ATTEND Surgery Plastic and Reconstructive Surgery
PROC: 0YU64JZ Supplement Left Inguinal Region with Synthetic Substitute, Percutaneous Endoscopic Approach (ICD-10-PCS; principal; 2022-06-20 11:00)
PROC: 8E0W4CZ Robotic Assisted Procedure of Trunk Region, Percutaneous Endoscopic Approach (ICD-10-PCS; principal; 2022-06-20 11:00)
DX: K40.31 Unilateral inguinal hernia, with obstruction, without gangrene, recurrent (principal); R78.81 Bacteremia; E66.01 Morbid (severe) obesity due to excess calories; Z68.35 Body mass index [BMI] 35.0-35.9, adult; I11.9 Hypertensive heart disease without heart failure; N20.0 Calculus of kidney; G47.30 Sleep apnea, unspecified; N42.9 Disorder of prostate, unspecified; D17.9 Benign lipomatous neoplasm, unspecified; K57.30 Diverticulosis of large intestine without perforation or abscess without bleeding; R94.31 Abnormal electrocardiogram [ECG] [EKG]; F41.9 Anxiety disorder, unspecified; Z79.1 Long term (current) use of non-steroidal anti-inflammatories (NSAID); Z79.51 Long term (current) use of inhaled steroids; Z79.899 Other long term (current) drug therapy; Z88.5 Allergy status to narcotic agent; Z86.19 Personal history of other infectious and parasitic diseases; Z96.693 Finger-joint replacement, bilateral; Z96.653 Presence of artificial knee joint, bilateral; Z96.642 Presence of left artificial hip joint; Z87.442 Personal history of urinary calculi
CPT/HCPCS: 36415; 74177; 80053; 81003; 83605; 84145; 85025; 86140; 88304; 93005; 94640; 94760; 96365; 96375; 96376; 99285

== ENCOUNTER 2022-06-25 08:24 | Emergency (ER) | payer MEDICARE ==
[2022-06-25 08:30] VITALS: TEMP 97.4
[2022-06-25] MEDS ORDERED: PANTOPRAZOLE 40 MG/10 ML VIAL IVP STA (08:39)
[2022-06-25] MEDS ORDERED: HYDROmorphone 1 MG/ML 1 ML SYRINGE IVP STA (08:39)
--- NOTE | 2022-06-25 08:44 | ED ---
General Adult HPI - General Chief complaint: Abdominal Pain Stated complaint: abd pain Time Seen by Provider: 06/25/22 08:32 Source: patient, family, RN notes reviewed Mode of arrival: ambulatory Limitations: no limitations - History of Present Illness Initial comments: Patient is a pleasant 66-year-old male presenting to the emergency department with concerns with abdominal discomfort. Patient did have left inguinal hernia repair done 4 days ago. Patient has had increasing abdominal discomfort since that time. Patient had none prior to surgery. Patient had urgent hernia repair done secondary to concern for incarceration. No nausea or vomiting. Patient has not had a bowel movement in 6 days now. Patient is passing gas. - Related Data Home Medications Medication Instructions Recorded Confirmed Celecoxib [CeleBREX] 200 mg PO DAILY 09/18/15 06/20/22 modafiniL [Provigil] 200 mg PO DAILY 09/18/15 06/20/22 ALPRAZolam [Xanax] 0.25 mg PO BID PRN 04/30/20 06/20/22 Fluticasone/Umeclidin/Vilanter 1 puff INHALATION RT-DAILY 06/20/22 06/20/22 [Trelegy Ellipta 100-62.5-25] Lisinopril-Hctz 20-12.5 mg 1 tab PO DAILY 06/20/22 06/20/22 [Zestoretic 20-12.5] Tamsulosin [Flomax] 0.4 mg PO HS 06/20/22 06/20/22 Previous Rx's Medication Instructions Recorded Acetaminophen Tab [Tylenol Tab] 1,000 mg PO Q6HR PRN #30 tablet 06/21/22 Cyclobenzaprine [Flexeril] 10 mg PO TID #30 tab 06/21/22 Simethicone [Gas-X] 125 mg PO AC-TID PRN #20 capsule 06/21/22 Amoxic-Pot Clav 875-125Mg 1 tab PO Q12HR 7 Days #14 tab 06/23/22 [Augmentin 875-125] Lactulose 20 gm PO TID PRN #180 ml 06/25/22 Allergies Allergy/AdvReac Type Severity Reaction Status Date / Time hydrocodone [From [place]] AdvReac Confusion Verified 06/25/22 08:30 morphine AdvReac Nausea & Verified 06/25/22 08:30 Vomiting Review of Systems ROS Statement: Those systems with pertinent positive or pertinent negative responses have been documented in the HPI. ROS Other: All systems not noted in ROS Statement are negative. Constitutional: Denies: fever Gastrointestinal: Reports: as per HPI, abdominal pain, constipation. Denies: nausea, vomiting, diarrhea Past Medical History Past Medical History: Prostate Disorder Additional Past Medical History / Comment(s): Kidney stone, hx. of sleep apnea- several sleep studies done. States in 2018 was in the hospital for some type of infection. States not sure what it was, but in the ICU for a couple of days. Hospitalized for a week with Covid. History of Any Multi-Drug Resistant Organisms: Other MDRO Past Surgical History: Appendectomy, Hernia Repair, Joint Replacement Additional Past Surgical History / Comment(s): LT SHANTEL, BILAT TKA, Bilat carpal tunnel, joint replacement both thumbs. Past Anesthesia/Blood Transfusion Reactions: No Reported Reaction Additional Past Anesthesia/Blood Transfusion Reaction / Comment(s): Takes longer to wake up. Past Psychological History: Anxiety, Depression Smoking Status: Never smoker Past Alcohol Use History: Occasional Past Drug Use History: None Reported - Past Family History Mother Family Medical History: Cancer Additional Family Medical History / Comment(s): KIDNEY Daughter(s) Family Medical History: Cancer Additional Family Medical History / Comment(s): BREAST General Exam Limitations: no limitations General appearance: alert, in no apparent distress Head exam: Present: normocephalic Eye exam: Present: normal appearance Neck exam: Present: normal inspection Respiratory exam: Present: normal lung sounds bilaterally Cardiovascular Exam: Present: regular rate, normal rhythm Expanded Peripheral pulses: 2+: Dorsalis Pedis (R), Dorsalis Pedis (L) GI/Abdominal exam: Present: soft, tenderness (Mild to moderate diffuse tenderness), hyperactive bowel sounds. Absent: distended, guarding, rebound, rigid, pulsatile mass Extremities exam: Present: normal inspection Back exam: Present: normal inspection Neurological exam: Present: alert Psychiatric exam: Present: normal affect, normal mood Skin exam: Present: normal color Course Vital Signs 06/25/22 06/25/22 08:28 09:12 Temperature 97.4 F L Pulse Rate 69 68 Respiratory 20 20 Rate Blood Pressure 148/95 124/96 O2 Sat by Pulse 96 97 Oximetry EKG Findings - EKG Results: EKG: interpreted by ERMD (Left axis. Poor R-wave progression.), sinus rhythm, normal ST/T Medical Decision Making - Medical Decision Making Was pt. sent in by a medical professional or institution (RABIA Packer, EMERGENCY WORKER, urgent care, hospital, or [facility]...) When possible be specific @ -[No] Did you speak to anyone other than the patient for history (EMS, parent, family, police, friend...)? What history was obtained from this source @ -When I did speak with Dr. Buchanan's provided additional history including signs of hernia Did you review nursing and triage notes (agree or disagree)? Why? @ -[I reviewed and agree with nursing and triage notes] Were old charts reviewed (outside hosp., previous admission, EMS record, old EKG, old radiological studies, urgent care reports/EKG's, [facility] records)? Report findings @ -[No old charts were reviewed] Differential Diagnosis (chest pain, altered mental status, abdominal pain women, abdominal pain men, vaginal bleeding, weakness, fever, dyspnea, syncope, headache, dizziness, GI bleed, back pain, seizure, CVA, palpatations, mental health)? @ -Differential Abdominal Pain Men: Appendicitis, cholecystitis, diverticulosis, ischemic bowel, pancreatitis, hepatitis, UTI, gastroenteritis, AAA, incarcerated hernia, bowel obstruction, constipation, inflammatory bowel, hepatitis, peptic ulcer disease, splenic infarction, perforated viscus, testicular torsion, this is not meant to be an all-inclusive list EKG interpreted by me (3pts min.). @ -[As above] X-rays interpreted by me (1pt min.). @ -Abdominal x-ray shows increased stool burden CT interpreted by me (1pt min.). @ -Report reviewed U/S interpreted by me (1pt. min.). @ -[None done] What testing was considered but not performed or refused? (CT, X-rays, U/S, labs)? Why? @ -[None] What meds were considered but not given or refused? Why? @ -[None] Did you discuss the management of the patient with other professionals (professionals i.e. RABIA Packer, EMERGENCY WORKER, lab, RT, psych nurse, community mental health social worker, temperature inspector, teacher, industrial relations officer, human services case manager)? Give summary @ -Case was discussed with Dr. Buchanan who did evaluate the patient. She recommends abdominal binder and lactulose with prescription otherwise patient can be discharged. Was smoking cessation discussed for >3mins.? @ -[No] Was critical care preformed (if so, how long)? @ -[No] Were there social determinants of health that impacted care today? How? (Homelessness, low income, unemployed, alcoholism, drug addiction, transportation, low edu. Level, literacy, decrease access to med. care, snf, rehab)? @ -[No] Was there de-escalation of care discussed even if they declined (Discuss DNR or withdrawal of care, Hospice)? DNR status @ -[No] What co-morbidities impacted this encounter? (DM, HTN, Smoking, COPD, CAD, Cancer, CVA, ARF, Chemo, Hep., AIDS, mental health diagnosis, sleep apnea, morbid obesity)? @ -[None] Was patient admitted / discharged? Hospital course, mention meds given and rou te, prescriptions, significant lab abnormalities, going to OR and other pertinent info. @ -Report reviewed. Patient will be discharged with abdominal binder and lactulose with follow-up with Dr. Buchanan as recommended by her. Undiagnosed new problem with uncertain prognosis? @ -[No] Drug Therapy requiring intensive monitoring for toxicity (Heparin, Nitro, Insulin, Cardizem)? @ -[No] Were any procedures done? @ -[No] Diagnosis/symptom? @ -Abdominal pain, constipation Acute, or Chronic, or Acute on Chronic? @ -Acute, acute Uncomplicated (without systemic symptoms) or Complicated (systemic symptoms)? @ -[default] Side effects of treatment? @ -[No] Exacerbation, Progression, or Severe Exacerbation? @ -[No] Poses a threat to life or bodily function? How? (Chest pain, USA, MA, pneumonia, PE, COPD, DKA, ARF, appy, cholecystitis, CVA, Diverticulitis, Homicidal, Suicidal, threat to staff... and all critical care pts) @ -[No] - Lab Data Result diagrams: 06/25/22 08:58 06/25/22 08:58 Lab Results 06/25/22 06/25/22 06/25/22 Range/Units 08:58 08:58 08:58 WBC 5.5 (3.8-10.6) k/uL RBC 5.12 (4.30-5.90) m/uL Hgb 15.5 (13.0-17.5) gm/dL Hct 45.1 (39.0-53.0) % MCV 88.0 (80.0-100.0) fL MCH 30.4 (25.0-35.0) pg MCHC 34.5 (31.0-37.0) g/dL RDW 12.7 (11.5-15.5) % Plt Count 217 (150-450) k/uL MPV 7.6 Neutrophils % 62 % Lymphocytes % 22 % Monocytes % 6 % Eosinophils % 7 % Basophils % 0 % Neutrophils # 3.4 (1.3-7.7) k/uL Lymphocytes # 1.2 (1.0-4.8) k/uL Monocytes # 0.3 (0-1.0) k/uL Eosinophils # 0.4 (0-0.7) k/uL Basophils # 0.0 (0-0.2) k/uL PT 9.9 (9.0-12.0) sec INR 0.9 (<1.2) APTT 25.1 (22.0-30.0) sec Sodium (137-145) mmol/L Potassium (3.5-5.1) mmol/L Chloride (98-107) mmol/L Carbon Dioxide (22-30) mmol/L Anion Gap mmol/L BUN (9-20) mg/dL Creatinine (0.66-1.25) mg/dL Est GFR (CKD-EPI)AfAm (>60 ml/min/1.73 sqM) Est GFR (CKD-EPI)NonAf (>60 ml/min/1.73 sqM) Glucose (74-99) mg/dL Calcium (8.4-10.2) mg/dL Total Bilirubin (0.2-1.3) mg/dL AST (17-59) U/L ALT (4-49) U/L Alkaline Phosphatase (38-126) U/L Total Protein (6.3-8.2) g/dL Albumin (3.5-5.0) g/dL Amylase (30-110) U/L Lipase (23-300) U/L Urine Color Yellow Urine Appearance Clear (Clear) Urine pH 7.5 (5.0-8.0) Ur Specific [place] 1.014 (1.001-1.035) Urine Protein Negative (Negative) Urine Glucose (UA) Negative (Negative) Urine Ketones Negative (Negative) Urine Blood Negative (Negative) Urine Nitrite Negative (Negative) Urine Bilirubin Negative (Negative) Urine Urobilinogen <2.0 (<2.0) mg/dL Ur Leukocyte Esterase Negative (Negative) 06/25/22 Range/Units 08:58 WBC (3.8-10.6) k/uL RBC (4.30-5.90) m/uL Hgb (13.0-17.5) gm/dL Hct (39.0-53.0) % MCV (80.0-100.0) fL MCH (25.0-35.0) pg MCHC (31.0-37.0) g/dL RDW (11.5-15.5) % Plt Count (150-450) k/uL MPV Neutrophils % % Lymphocytes % % Monocytes % % Eosinophils % % Basophils % % Neutrophils # (1.3-7.7) k/uL Lymphocytes # (1.0-4.8) k/uL Monocytes # (0-1.0) k/uL Eosinophils # (0-0.7) k/uL Basophils # (0-0.2) k/uL PT (9.0-12.0) sec INR (<1.2) APTT (22.0-30.0) sec Sodium 135 L (137-145) mmol/L Potassium 5.2 H (3.5-5.1) mmol/L Chloride 103 (98-107) mmol/L Carbon Dioxide 25 (22-30) mmol/L Anion Gap 7 mmol/L BUN 17 (9-20) mg/dL Creatinine 0.92 (0.66-1.25) mg/dL Est GFR (CKD-EPI)AfAm >90 (>60 ml/min/1.73 sqM) Est GFR (CKD-EPI)NonAf 88 (>60 ml/min/1.73 sqM) Glucose 91 (74-99) mg/dL Calcium 9.0 (8.4-10.2) mg/dL Total Bilirubin 1.3 (0.2-1.3) mg/dL AST 100 H (17-59) U/L ALT 65 H (4-49) U/L Alkaline Phosphatase 38 (38-126) U/L Total Protein 6.7 (6.3-8.2) g/dL Albumin 4.0 (3.5-5.0) g/dL Amylase 67 (30-110) U/L Lipase 62 (23-300) U/L Urine Color Urine Appearance (Clear) Urine pH (5.0-8.0) Ur Specific [place] (1.001-1.035) Urine Protein (Negative) Urine Glucose (UA) (Negative) Urine Ketones (Negative) Urine Blood (Negative) Urine Nitrite (Negative) Urine Bilirubin (Negative) Urine Urobilinogen (<2.0) mg/dL Ur Leukocyte Esterase (Negative) Disposition Clinical Impression: Abdominal pain, Constipation Disposition: HOME SELF-CARE Condition: Stable Instructions (If sedation given, give patient instructions): Abdominal Pain (ED), Constipation (ED), High Fiber Diet (ED) Additional Instructions: Prescription for lactulose has been sent to pharmacy. Please do follow-up with primary care physician in the next day or 2 for recheck. He is also follow-up with Dr. Buchanan in the next day or 2 for recheck as directed by her. Return for increased pain, vomiting, fever, worsening or change in symptoms or any oth er concerns. Prescriptions: Lactulose 20 gm PO TID PRN #180 ml PRN Reason: Constipation Is patient prescribed a controlled substance at d/c from ED?: No Referrals: Luigi Lara DO [Primary Care Provider] - 1-2 days Time of Disposition: 10:42
[2022-06-25 09:09] LABS: Basophils % (A) 0 %; Eosinophils # (A) 0.4 k/uL (0-0.7); Eosinophils % (A) 7 %; HCT 45.1 % (39.0-53.0); HGB 15.5 gm/dL (13.0-17.5); Lymphocytes # (A) 1.2 k/uL (1.0-4.8); Lymphocytes % (A) 22 %; MCH 30.4 pg (25.0-35.0); MCHC 34.5 g/dL (31.0-37.0); Mean Platelet Volume 7.6; Monocytes # (A) 0.3 k/uL (0-1.0); Monocytes % (A) 6 %; Neutrophils # (A) 3.4 k/uL (1.3-7.7); Neutrophils % (A) 62 %; Platelet Count 217 k/uL (150-450); RBC 5.12 m/uL (4.30-5.90); RDW 12.7 % (11.5-15.5); WBC 5.5 k/uL (3.8-10.6)
[2022-06-25 09:25] LABS: ALT 65 U/L (4-49); AST 100 U/L (17-59); African American GFR (CKD) >90 (>60 ml/min/1.73 sqM); Alkaline Phosphatase 38 U/L (38-126); Amylase 67 U/L (30-110); Anion Gap 7 mmol/L; Blood Urea Nitrogen 17 mg/dL (9-20); Carbon Dioxide 25 mmol/L (22-30); Chloride 103 mmol/L (98-107); Glucose 91 mg/dL (74-99); Lipase 62 U/L (23-300); Non-African American GFR(CKD) 88 (>60 ml/min/1.73 sqM); Sodium 135 mmol/L (137-145); Total Bilirubin 1.3 mg/dL (0.2-1.3); Total Protein 6.7 g/dL (6.3-8.2)
--- NOTE | 2022-06-25 09:26 | XR ---
EXAMINATION TYPE: XR KUB DATE OF EXAM: 06/25/2022 9:20 AM CLINICAL HISTORY: Increasing pain since recent inguinal hernia repair surgery TECHNIQUE: Two Upright KUB images of the abdomen are obtained. COMPARISON: CT abdomen and pelvis June 20, 2022 FINDINGS: Gas seen in nondistended stomach. Scattered gas is seen in non-distended small bowel loops . Gas and fecal material is seen in non-distended colon. Moderate right-sided colonic fecal prominenc e redemonstrated. Metallic hardware from left hip surgery is partially imaged similar to prior. No fr ee air. Basilar linear opacity favors atelectasis. IMPRESSION: Overall nonobstructive bowel gas pattern. Moderate proximal colonic fecal stasis redemonstrated.
[2022-06-25 09:47] LABS: Potassium 5.2 mmol/L (3.5-5.1)
--- NOTE | 2022-06-25 10:02 | CT ---
EXAMINATION TYPE: CT abdomen pelvis w con DATE OF EXAM: 06/25/2022 COMPARISON: CT abdomen and pelvis June 20, 2022 HISTORY: Abdominal pain radiating RT side into back. Hx prostate disorder, renal stones CT DLP: 1934.9 mGycm, Automated Exposure Control for Dose Reduction was Utilized. CONTRAST: CT scan of the abdomen and pelvis is performed without oral and with IV Contrast, patient injected wi th 100 mL of Isovue 300. FINDINGS: LUNG BASES: Some coronary artery calcification is redemonstrated. LIVER/GB: Liver remains diffusely low dense suggestive of mild diffuse fatty infiltration. PANCREAS: No significant abnormality is seen. SPLEEN: No significant abnormality is seen. ADRENALS: No significant abnormality is seen. KIDNEYS: Symmetric cortical medullary uptake and excretion with a few simple small thin-walled cysts scattered throughout the and left kidney are redemonstrated. There are several small left-sided renal calculi redemonstrated. BOWEL: Some focal diverticula near junction of the left and sigmoid colon in the anterior left pelvis has mild adjacent fat stranding on current study. This is in close proximity to the site of left ing uinal hernia repair. There is successful reduction of the bowel containing hernia. PROSTATE/SEMINAL VESICLES: Prostate gland is stable and measures upper limits of normal size with a f ew punctate calcifications. LYMPH NODES: No greater than 1cm abdominal or pelvic lymph nodes are appreciated. OSSEOUS STRUCTURES: Metallic hardware from left hip surgery causes streak artifact somewhat limiting evaluation of pelvic structures. OTHER: There is new subcutaneous air anterior abdominal wall presumed related to interval surgery sma ll amount of air in the left inguinal canal is also noted. There is persistent but improved asymmetri c left-sided inguinal hernia now small in size containing fat with mild fat stranding IMPRESSION: 1. Successful reduction of the bowel containing left inguinal hernia. There is persistent left inguin al hernia but it is decreased in size from prior study. It does contain some ill-defined fluid and fa t stranding along with air. This is nonspecific given recent surgery. There is also mild fluid and fa t stranding adjacent to diverticula in the proximal sigmoid colon of the left pelvis. This is nonspec ific. Mild acute uncomplicated diverticulitis cannot be excluded.
[2022-06-25 10:09] LABS: Appearance,Urine Clear (Clear); Bilirubin,Urine Negative (Negative); Blood,Urine Negative (Negative); Color,Urine Yellow; Glucose,Urine (UA) Negative (Negative); Ketones,Urine Negative (Negative); Leukocyte Esterase,Urine Negative (Negative); Nitrite,Urine Negative (Negative); PH, Urine 7.5 (5.0-8.0); Protein,Urine Negative (Negative); Specific Gravity,Urine 1.014 (1.001-1.035); Urobilinogen,Urine <2.0 mg/dL (<2.0)
[2022-06-25 10:22] LABS: INR 0.9 (<1.2); Partial Thromboplastin Time 25.1 sec (22.0-30.0); Prothrombin Time 9.9 sec (9.0-12.0)
[2022-06-25] MEDS ORDERED: LACTULOSE 20 GM/30 ML CUP PO ONE (10:38)
--- NOTE | 2022-06-25 11:10 | P.GSCN ---
History of Present Illness Consult date: 06/25/22 History of present illness: Patient seen and evaluated. He reports moderate right upper quadrant pain with multiple night. He does personal history of kidney stones. Previous urinalysis last hospitalization was unremarkable. He status post left inguinal hernia repair. Patient was reviewed and risks of constipation from prior conversation. Due to elevated LFTs and acute right upper quadrant abdominal pain with distended gallbladder found on CT of the abdomen and pelvis, recommend right upper quadrant ultrasound. CT reviewed regarding the left groin with reduced hernia. Patient does have diverticulosis found intraoperatively. Recommend lactulose for constipation. Also recommend abdominal binder for comfort. Outpatient follow-up in telehealth scheduled. Past Medical History Past Medical History: Prostate Disorder Additional Past Medical History / Comment(s): Kidney stone, hx. of sleep apnea- several sleep studies done. States in 2018 was in the hospital for some type of infection. States not sure what it was, but in the ICU for a couple of days. Hospitalized for a week with Covid. History of Any Multi-Drug Resistant Organisms: Other MDRO Past Surgical History: Appendectomy, Hernia Repair, Joint Replacement Additional Past Surgical History / Comment(s): LT SHANTEL, BILAT TKA, Bilat carpal tunnel, joint replacement both thumbs. Past Anesthesia/Blood Transfusion Reactions: No Reported Reaction Additional Past Anesthesia/Blood Transfusion Reaction / Comm: Takes longer to wake up. Past Psychological History: Anxiety, Depression Smoking Status: Never smoker Past Alcohol Use History: Occasional Past Drug Use History: None Reported - Past Family History Mother Family Medical History: Cancer Additional Family Medical History / Comment(s): KIDNEY Daughter(s) Family Medical History: Cancer Additional Family Medical History / Comment(s): BREAST Medications and Allergies Home Medications Medication Instructions Recorded Confirmed Type Celecoxib [CeleBREX] 200 mg PO DAILY 09/18/15 06/20/22 History modafiniL [Provigil] 200 mg PO DAILY 09/18/15 06/20/22 History ALPRAZolam [Xanax] 0.25 mg PO BID PRN 04/30/20 06/20/22 History Fluticasone/Umeclidin/Vilanter 1 puff INHALATION RT-DAILY 06/20/22 06/20/22 History [Trelegy Ellipta 100-62.5-25] Lisinopril-Hctz 20-12.5 mg 1 tab PO DAILY 06/20/22 06/20/22 History [Zestoretic 20-12.5] Tamsulosin [Flomax] 0.4 mg PO HS 06/20/22 06/20/22 History Acetaminophen Tab [Tylenol Tab] 1,000 mg PO Q6HR PRN #30 tablet 06/21/22 Rx Cyclobenzaprine [Flexeril] 10 mg PO TID #30 tab 06/21/22 Rx Simethicone [Gas-X] 125 mg PO AC-TID PRN #20 capsule 06/21/22 Rx Amoxic-Pot Clav 875-125Mg 1 tab PO Q12HR 7 Days #14 tab 06/23/22 Rx [Augmentin 875-125] Lactulose 20 gm PO TID PRN #180 ml 06/25/22 Rx Allergies Allergy/AdvReac Type Severity Reaction Status Date / Time hydrocodone [From [place]] AdvReac Confusion Verified 06/25/22 08:30 morphine AdvReac Nausea & Verified 06/25/22 08:30 Vomiting Surgical - Exam Vital Signs Temp Pulse Resp BP Pulse Ox 97.4 F L 69 20 148/95 96 06/25/22 08:28 06/25/22 08:28 06/25/22 08:28 06/25/22 08:28 06/25/22 08:28 Results - Labs 06/25/22 08:58 06/25/22 08:58 Abnormal Lab Results - Last 24 Hours (Table) 06/25/22 Range/Units 08:58 Sodium 135 L (137-145) mmol/L Potassium 5.2 H (3.5-5.1) mmol/L AST 100 H (17-59) U/L ALT 65 H (4-49) U/L Diabetes panel 06/25/22 Range/Units 08:58 Sodium 135 L (137-145) mmol/L Potassium 5.2 H (3.5-5.1) mmol/L Chloride 103 (98-107) mmol/L Carbon Dioxide 25 (22-30) mmol/L BUN 17 (9-20) mg/dL Creatinine 0.92 (0.66-1.25) mg/dL Glucose 91 (74-99) mg/dL Calcium 9.0 (8.4-10.2) mg/dL AST 100 H (17-59) U/L ALT 65 H (4-49) U/L Alkaline Phosphatase 38 (38-126) U/L Total Protein 6.7 (6.3-8.2) g/dL Albumin 4.0 (3.5-5.0) g/dL Calcium panel 06/25/22 Range/Units 08:58 Calcium 9.0 (8.4-10.2) mg/dL Albumin 4.0 (3.5-5.0) g/dL Pituitary panel 06/25/22 Range/Units 08:58 Sodium 135 L (137-145) mmol/L Potassium 5.2 H (3.5-5.1) mmol/L Chloride 103 (98-107) mmol/L Carbon Dioxide 25 (22-30) mmol/L BUN 17 (9-20) mg/dL Creatinine 0.92 (0.66-1.25) mg/dL Glucose 91 (74-99) mg/dL Calcium 9.0 (8.4-10.2) mg/dL Adrenal panel 06/25/22 Range/Units 08:58 Sodium 135 L (137-145) mmol/L Potassium 5.2 H (3.5-5.1) mmol/L Chloride 103 (98-107) mmol/L Carbon Dioxide 25 (22-30) mmol/L BUN 17 (9-20) mg/dL Creatinine 0.92 (0.66-1.25) mg/dL Glucose 91 (74-99) mg/dL Calcium 9.0 (8.4-10.2) mg/dL Total Bilirubin 1.3 (0.2-1.3) mg/dL AST 100 H (17-59) U/L ALT 65 H (4-49) U/L Alkaline Phosphatase 38 (38-126) U/L Total Protein 6.7 (6.3-8.2) g/dL Albumin 4.0 (3.5-5.0) g/dL
[2022-06-25 11:39] VITALS: RESP 18
--- NOTE | 2022-06-25 11:43 | US ---
EXAMINATION TYPE: US gallbladder DATE OF EXAM: 06/25/2022 COMPARISON: NONE CLINICAL INDICATION: Male, 66 years old with history of right upper quadrant pain; RUQ pain for 5 day s, getting worse. Hernia surgery 6 days ago TECHNIQUE: Multiple sonographic images of the right upper quadrant are obtained. FINDINGS: EXAM MEASUREMENTS: Liver Length: 16.2 cm Gallbladder Wall: 0.2 cm Right Kidney: 11.9 x 5.6 x 4.6 cm [employer] NOTES: technical limitations due to large amount of overlying bowel content Pancreas: Obscured by bowel gas Liver: limited evaluation, only seen intercostally Gallbladder: no evidence of stones as visualized Evidence for sonographic Wise's sign: no CBD: Obscured by overlying bowel gas Right Kidney: possible stone mid = 0.6cm IMPRESSION: 1. Probable 6 mm right renal calculus with no obvious hydronephrosis. 2. No evidence of gallstones.
[2022-06-25 12:30] VITALS: BP 134/94; PULSE 65
== END 2022-06-25 12:29 | disposition home or self-care (01) ==
LOC: EC 08:24
DX: K59.00 Constipation, unspecified (principal); R10.9 Unspecified abdominal pain; F41.9 Anxiety disorder, unspecified; F32.A Depression, unspecified; Z86.16 Personal history of COVID-19; Z88.5 Allergy status to narcotic agent; Z79.899 Other long term (current) drug therapy
CPT/HCPCS: 36415; 93005; 80053; 82150; 83690; 85025; 85610; 85730; 81003; 74018; 76705; 74177; 99285; 96374; 96375; J1170; C9113; Q9967

== ENCOUNTER 2022-07-16 08:32 | Observation (INO) | payer MEDICARE ==
[2022-07-16] MEDS ORDERED: HYDROmorphone 1 MG/ML 1 ML SYRINGE IVP STA ×2 (09:21→09:44)
--- NOTE | 2022-07-16 09:21 | ED ---
Abdominal Pain HPI - General Chief Complaint: Abdominal Pain Stated Complaint: Abd Rt pain Time Seen by Provider: 07/16/22 08:53 Source: patient Mode of arrival: ambulatory Limitations: no limitations - History of Present Illness Initial Comments: 66-year-old male who presents to the emergency department reporting right lower quadrant abdominal pain. States that ever since he had hernia surgery last month that he has had persistent abdominal pain. Surgery was performed in the left groin however his pain is generalized with significant pain in the right lower quadrant. He denies nausea or vomiting. No diarrhea, constipation, black or bloody stools. No hematuria. No fevers. No other alleviating, precipitating or modifying factors - Related Data Home Medications Medication Instructions Recorded Confirmed Celecoxib [CeleBREX] 200 mg PO DAILY 09/18/15 07/16/22 modafiniL [Provigil] 200 mg PO DAILY 09/18/15 07/16/22 ALPRAZolam [Xanax] 0.25 mg PO BID PRN 04/30/20 07/16/22 Fluticasone/Umeclidin/Vilanter 1 puff INHALATION RT-DAILY 06/20/22 07/16/22 [Trelegy Ellipta 100-62.5-25] Lisinopril-Hctz 20-12.5 mg 1 tab PO DAILY 06/20/22 07/16/22 [Zestoretic 20-12.5] Tamsulosin [Flomax] 0.4 mg PO HS 06/20/22 07/16/22 Previous Rx's Medication Instructions Recorded Acetaminophen Tab [Tylenol Tab] 1,000 mg PO Q6HR PRN #30 tablet 06/21/22 Simethicone [Gas-X] 125 mg PO AC-TID PRN #20 capsule 06/21/22 Allergies Allergy/AdvReac Type Severity Reaction Status Date / Time hydrocodone [From [place]] AdvReac Confusion Verified 07/16/22 11:48 morphine AdvReac Nausea & Verified 07/16/22 11:48 Vomiting Review of Systems ROS Statement: Those systems with pertinent positive or pertinent negative responses have been documented in the HPI. ROS Other: All systems not noted in ROS Statement are negative. Past Medical History Past Medical History: Prostate Disorder Additional Past Medical History / Comment(s): Kidney stone, hx. of sleep apnea- several sleep studies done. States in 2018 was in the hospital for some type of infection. States not sure what it was, but in the ICU for a couple of days. Hospitalized for a week with Covid. History of Any Multi-Drug Resistant Organisms: Other MDRO Past Surgical History: Appendectomy, Hernia Repair, Joint Replacement Additional Past Surgical History / Comment(s): LT SHANTEL, BILAT TKA, Bilat carpal tunnel, joint replacement both thumbs. Past Anesthesia/Blood Transfusion Reactions: No Reported Reaction Additional Past Anesthesia/Blood Transfusion Reaction / Comment(s): Takes longer to wake up. Past Psychological History: Anxiety, Depression Smoking Status: Never smoker Past Alcohol Use History: Occasional Past Drug Use History: None Reported - Past Family History Mother Family Medical History: Cancer Additional Family Medical History / Comment(s): KIDNEY Daughter(s) Family Medical History: Cancer Additional Family Medical History / Comment(s): BREAST General Exam Limitations: no limitations Course Vital Signs 07/16/22 07/16/22 08:37 15:48 Temperature 97.7 F 97.1 F L Pulse Rate 63 Pulse Rate [ 54 L Left Pulse Oximetery] Respiratory 18 16 Rate Blood Pressure 132/91 Blood Pressure 136/91 [Left Arm] O2 Sat by Pulse 99 97 Oximetry Medical Decision Making - Medical Decision Making Was pt. sent in by a medical professional or institution (Dr. PA, WORKFORCE DEVELOPMENT SPECIALIST, urgent care, hospital, or [facility]...) When possible be specific @ -[No] Did you speak to anyone other than the patient for history (EMS, parent, family, police, friend...)? What history was obtained from this source @ -[No] Did you review nursing and triage notes (agree or disagree)? Why? @ -[I reviewed and agree with nursing and triage notes] Were old charts reviewed (outside hosp., previous admission, EMS record, old EKG, old radiological studies, urgent care reports/EKG's, [facility] records)? Report findings @ -[No old charts were reviewed] Differential Diagnosis (chest pain, altered mental status, abdominal pain women, abdominal pain men, vaginal bleeding, weakness, fever, dyspnea, syncope, headache, dizziness, GI bleed, back pain, seizure, CVA, palpatations, mental health, musculoskeletal)? @ -[not applicable] EKG interpreted by me (3pts min.). @ -[As above] X-rays interpreted by me (1pt min.). @ -[None done] CT interpreted by me (1pt min.). @ -[None done] U/S interpreted by me (1pt. min.). @ -[None done] What testing was considered but not performed or refused? (CT, X-rays, U/S, labs)? Why? @ -[None] What meds were considered but not given or refused? Why? @ -[None] Did you discuss the management of the patient with other professionals (professionals i.e. DrChip, PA, WORKFORCE DEVELOPMENT SPECIALIST, lab, RT, psych nurse, social organization professor, human resources safety manager, teacher, administrative officer, porter sample case)? Give summary @ -[No] Was smoking cessation discussed for >3mins.? @ -[No] Was critical care preformed (if so, how long)? @ -[No] Were there social determinants of health that impacted care today? How? (Homelessness, low income, unemployed, alcoholism, drug addiction, transportation, low edu. Level, literacy, decrease access to med. care, usp, rehab)? @ -[No] Was there de-escalation of care discussed even if they declined (Discuss DNR or withdrawal of care, Hospice)? DNR status @ -[No] What co-morbidities impacted this encounter? (DM, HTN, Smoking, COPD, CAD, Cancer, CVA, ARF, Chemo, Hep., AIDS, mental health diagnosis, sleep apnea, morbid obesity)? @ -[None] Was patient admitted / discharged? Hospital course, mention meds given and route, prescriptions, significant lab abnormalities, going to OR and other pertinent info. @ -On arrival patient is placed into room 18. Thorough history and physical exam is performed. IV is established laboratory studies are conducted. CT of the abdomen demonstrates diverticulitis for which I gave the patient an tibiotics. I spoke with Dr. Buchanan and she doesn't elevate the patient emergency department. Would like the patient to be admitted to her service. Patient transported to the floor in stable condition Undiagnosed new problem with uncertain prognosis? @ -[No] Drug Therapy requiring intensive monitoring for toxicity (Heparin, Nitro, Insuli n, Cardizem)? @ -[No] Were any procedures done? @ -[No] Diagnosis/symptom? @ -[default] Acute, or Chronic, or Acute on Chronic? @ -[default] Uncomplicated (without systemic symptoms) or Complicated (systemic symptoms)? @ -[default] Side effects of treatment? @ -[No] Exacerbation, Progression, or Severe Exacerbation? @ -[No] Poses a threat to life or bodily function? How? (Chest pain, [place], [place], pneumonia, PE, COPD, DKA, ARF, appy, cholecystitis, CVA, Diverticulitis, Homicidal, Suicidal, threat to staff... and all critical care pts) @ -[No] - Lab Data Result diagrams: 07/16/22 09:24 07/16/22 09:24 Lab Results 07/16/22 07/16/22 07/16/22 Range/Units : 09: 09:24 WBC 4.9 (3.8-10.6) k/uL RBC 4.85 (4.30-5.90) m/uL Hgb 14.8 (13.0-17.5) gm/dL Hct 43.1 (39.0-53.0) % MCV 88.8 (80.0-100.0) fL MCH 30.5 (25.0-35.0) pg MCHC 34.4 (31.0-37.0) g/dL RDW 12.4 (11.5-15.5) % Plt Count 173 (150-450) k/uL MPV 8.1 Neutrophils % 58 % Lymphocytes % 24 % Monocytes % 6 % Eosinophils % 10 % Basophils % 1 % Neutrophils # 2.8 (1.3-7.7) k/uL Lymphocytes # 1.2 (1.0-4.8) k/uL Monocytes # 0.3 (0-1.0) k/uL Eosinophils # 0.5 (0-0.7) k/uL Basophils # 0.0 (0-0.2) k/uL Sodium 138 (137-145) mmol/L Potassium 4.0 (3.5-5.1) mmol/L Chloride 104 (98-107) mmol/L Carbon Dioxide 29 (22-30) mmol/L Anion Gap 5 mmol/L BUN 25 H (9-20) mg/dL Creatinine 0.87 (0.66-1.25) mg/dL Est GFR (CKD-EPI)AfAm >90 (>60 ml/min/1.73 sqM) Est GFR (CKD-EPI)NonAf >90 (>60 ml/min/1.73 sqM) Glucose 89 (74-99) mg/dL Plasma Lactic Acid Deepak 1.1 (0.7-2.0) mmol/L Calcium 8.9 (8.4-10.2) mg/dL Total Bilirubin 0.8 (0.2-1.3) mg/dL AST 24 (17-59) U/L ALT 20 (4-49) U/L Alkaline Phosphatase 56 (38-126) U/L Total Protein 6.4 (6.3-8.2) g/dL Albumin 3.9 (3.5-5.0) g/dL Lipase 71 (23-300) U/L - EKG Data EKG Comments: EKG interpreted by myself demonstrates sinus rhythm with a rate of 64. ND interval 202. QRS 101. QTC of 406. No acute ST segment elevations or depr essions Disposition Clinical Impression: Abdominal pain, Diverticulitis Disposition: ADMITTED IP TO THIS HOSP Condition: Stable Is patient prescribed a controlled substance at d/c from ED?: No Time of Disposition: 13:30 Decision to Admit Reason: Admit from EC Decision Date: 07/16/22 Decision Time: 13:30
[2022-07-16 09:40] LABS: Basophils % (A) 1 %; Eosinophils # (A) 0.5 k/uL (0-0.7); Eosinophils % (A) 10 %; HCT 43.1 % (39.0-53.0); HGB 14.8 gm/dL (13.0-17.5); Lymphocytes # (A) 1.2 k/uL (1.0-4.8); Lymphocytes % (A) 24 %; MCH 30.5 pg (25.0-35.0); MCHC 34.4 g/dL (31.0-37.0); MCV 88.8 fL (80.0-100.0); Mean Platelet Volume 8.1; Monocytes # (A) 0.3 k/uL (0-1.0); Monocytes % (A) 6 %; Neutrophils # (A) 2.8 k/uL (1.3-7.7); Neutrophils % (A) 58 %; Platelet Count 173 k/uL (150-450); RBC 4.85 m/uL (4.30-5.90); RDW 12.4 % (11.5-15.5); WBC 4.9 k/uL (3.8-10.6)
[2022-07-16 09:54] LABS: ALT 20 U/L (4-49); AST 24 U/L (17-59); African American GFR (CKD) >90 (>60 ml/min/1.73 sqM); Albumin 3.9 g/dL (3.5-5.0); Alkaline Phosphatase 56 U/L (38-126); Anion Gap 5 mmol/L; Blood Urea Nitrogen 25 mg/dL (9-20); Calcium 8.9 mg/dL (8.4-10.2); Carbon Dioxide 29 mmol/L (22-30); Chloride 104 mmol/L (98-107); Glucose 89 mg/dL (74-99); Lipase 71 U/L (23-300); Non-African American GFR(CKD) >90 (>60 ml/min/1.73 sqM); Sodium 138 mmol/L (137-145); Total Bilirubin 0.8 mg/dL (0.2-1.3); Total Protein 6.4 g/dL (6.3-8.2)
--- NOTE | 2022-07-16 11:12 | CT ---
EXAMINATION TYPE: CT abdomen pelvis w con DATE OF EXAM: 07/16/2022 COMPARISON: CT abdomen and pelvis June 25, 2022 HISTORY: Abdominal pain, pt states hx inguinal hernia sx CT DLP: 1896.4 mGycm, Automated Exposure Control for Dose Reduction was Utilized. CONTRAST: CT scan of the abdomen and pelvis is performed with oral and with IV Contrast, patient injected with 100 mL of Isovue 300. FINDINGS: LUNG BASES: No significant abnormality is appreciated. LIVER/GB: Liver remains heterogeneously hypodense suggesting diffuse fatty infiltration. PANCREAS: No significant abnormality is seen. SPLEEN: No significant abnormality is seen. ADRENALS: No significant abnormality is seen. KIDNEYS: Symmetric cortical medullary uptake and excretion with a few simple small thin-walled cysts scattered throughout the left kidney are redemonstrated. There are several small left-sided renal mali culi redemonstrated. BOWEL: Some diverticula near junction of the left and sigmoid colon in the anterior left pelvis are r edemonstrated. Perhaps minimal fat stranding at this level near coronal image 47. No suspicious small or large bowel dilatation. PROSTATE/SEMINAL VESICLES: Prostate gland is stable and measures upper limits of normal size with a f ew punctate calcifications. LYMPH NODES: No greater than 1cm abdominal or pelvic lymph nodes are appreciated. OSSEOUS STRUCTURES: Metallic hardware from left hip surgery causes streak artifact somewhat limiting evaluation of pelvic structures. OTHER: No significant abnormality. IMPRESSION: Distal colonic diverticulosis with suggestion of perhaps mild or early acute uncomplicate d diverticulitis left lower quadrant. Otherwise no acute findings are evident.
[2022-07-16] MEDS ORDERED: metroNIDAZOLE 500 MG TAB PO STA (11:38)
[2022-07-16] MEDS ORDERED: cefTRIAXone IN SWFI 1,000 MG/10 ML SYRINGE IVP STA (11:38)
[2022-07-16] MEDS ORDERED: NALOXONE 0.4 MG/ML 1 ML VIAL IV PRN (13:30)
[2022-07-16] MEDS ORDERED: ONDANSETRON 4 MG/2 ML VIAL IVP PRN (13:30)
[2022-07-16] MEDS: SODIUM CHLORIDE 0.9% 1,000 ML IV SCH ×2 (14:07→20:54)
[2022-07-16] MEDS: PIPERACILLIN-TAZOBACTAM 3.375 GM in SODIUM CHLORIDE 0.9% 100 ML IVPB SCH ×2 (17:59→23:03)
[2022-07-16] MEDS: HYDROmorphone 1 MG/ML 1 ML SYRINGE IVP PRN ×2 (18:12→22:09)
[2022-07-17] MEDS: HYDROmorphone 1 MG/ML 1 ML SYRINGE IVP PRN ×5 (05:59→20:51)
[2022-07-17] MEDS: SODIUM CHLORIDE 0.9% 1,000 ML IV SCH ×3 (06:04→21:30)
--- NOTE | 2022-07-17 08:08 | P.GSHP ---
History of Present Illness H&P Date: 07/16/22 CHIEF COMPLAINT: Intractable abdominal pain, right upper quadrant HISTORY OF PRESENT ILLNESS: The patient is a 66-year-old male who is status post emergent left inguinal hernia repair for incarcerated hernia with large bowel obstruction related 4 weeks ago. Patient was recovering well from his surgery. This report eating fatty foods and fried foods with immediate epigastric and right upper quadrant abdominal pain. He reports his pain wraps around to his right upper back and shoulder. Past 3 days had intractable abdominal pain. CT of the abdomen and pelvis was obtained. Due to severe uncontrolled right upper quadrant abdominal pain, patient is admitted. PAST MEDICAL HISTORY: Please see list PAST SURGICAL HISTORY: Please see list MEDICATIONS: Please see list ALLERGIES: Denies. SOCIAL HISTORY: No illicit drug use or recent tobacco use FAMILY HISTORY: Pertinent for gallbladder disease REVIEW OF ORGAN SYSTEMS: CONSTITUTIONAL: No reports of fevers or chills. HEENT: Denies any troubles with the vision or hearing. ENDOCRINE: No reports of hypothyroidism. No diabetes. RESPIRATORY: No recent pneumonias. CARDIOVASCULAR: Denies chest pain or palpitations GI: No blood in stools or constipation. Has diverticulosis. Recent bowel obstruction. : Has kidney stone MUSCULOSKELETAL: Has occasional joint pain including back pain. NEURO: No seizure disorders or headaches. No recent stroke. PSYCH: No depression or suicidal ideation. HEMATOLOGIC: No personal or family history of DVTs or pulmonary emboli. PHYSICAL EXAM: VITAL SIGNS: Afebrile vital signs stable GENERAL: Well-developed pleasant male in no acute distress. HEENT: No scleral icterus. Extraocular movements grossly intact. Moist buccal mucosa. NECK: Supple without lymphadenopathy. CHEST: Unlabored respirations. Equal bilateral excursions. CARDIOVASCULAR: Regular rate regular rhythm rhythm. Distal 2+ pulses. ABDOMEN: Soft, nondistended. Severe right upper quadrant pain with palpation. MUSCULOSKELETAL: No clubbing, cyanosis, or edema. NEURO : No focal or lateralizing signs. Cranial nerves II-12 within normal limits. PSYCH: Alert and oriented to person, place and time. SKIN: Well perfused. Good skin turgor. STUDIES: CT abdomen and pelvis reviewed demonstrates diverticulosis. Reduction of incarcerated left hernia identified. This is my independent interpretation. Ultrasound of the right upper quadrant reviewed 3 weeks ago consistent with fatty liver disease. The gallbladder wall was thick. Positive Wise sign. LABS: LFTs previously elevated now normalized ASSESSMENT: 1. Diverticulosis with CT finding of diverticulitis 2. Intractable right upper quadrant abdominal pain, cholecystitis 3. Personal history of incarcerated left inguinal hernia with bowel obstruction 4. Kidney stones PLAN: 1. Recommend admission due to right upper quadrant intractable abdominal pain and diverticulitis as per computed tomography scan 2. Recommend cholecystectomy due to cholecystitis and intractable right upper quadrant abdominal pain 3. Heparin for DVT prophylaxis 5000 units. 4. Antibiotic prophylaxis. 5. He is elevated risk due to recent surgery and pre-existing comorbidities Past Medical History Past Medical History: Prostate Disorder Additional Past Medical History / Comment(s): Kidney stone, hx. of sleep apnea- several sleep studies done. States in 2018 was in the hospital for some type of infection. States not sure what it was, but in the ICU for a couple of days. Hospitalized for a week with Covid. History of Any Multi-Drug Resistant Organisms: Other MDRO Past Surgical History: Appendectomy, Hernia Repair, Joint Replacement Additional Past Surgical History / Comment(s): LT SHANTEL, BILAT TKA, Bilat carpal tunnel, joint replacement both thumbs. Past Anesthesia/Blood Transfusion Reactions: No Reported Reaction Additional Past Anesthesia/Blood Transfusion Reaction / Comment(s): Takes longer to wake up. Past Psychological History: Anxiety, Depression Smoking Status: Never smoker Past Alcohol Use History: Occasional Past Drug Use History: None Reported - Past Family History Mother Family Medical History: Cancer Additional Family Medical History / Comment(s): KIDNEY Daughter(s) Family Medical History: Cancer Additional Family Medical History / Comment(s): BREAST Medications and Allergies Home Medications Medication Instructions Recorded Confirmed Type RX: Celecoxib [CeleBREX] 200 mg PO DAILY 09/18/15 07/16/22 History RX: modafiniL [Provigil] 200 mg PO DAILY 09/18/15 07/16/22 History RX: ALPRAZolam [Xanax] 0.25 mg PO BID PRN 04/30/20 07/16/22 History RX: Fluticasone/Umeclidin/Vilanter 1 puff INHALATION RT-DAILY 06/20/22 07/16/22 History [Trelegy Ellipta 100-62.5-25] RX: Lisinopril-Hctz 20-12.5 mg 1 tab PO DAILY 06/20/22 07/16/22 History [Zestoretic 20-12.5] RX: Tamsulosin [Flomax] 0.4 mg PO HS 06/20/22 07/16/22 History Acetaminophen Tab [Tylenol Tab] 1,000 mg PO Q6HR PRN #30 tablet 06/21/22 07/16/22 Rx RX: Simethicone [Gas-X] 125 mg PO AC-TID PRN #20 capsule 06/21/22 07/16/22 Rx Allergies Allergy/AdvReac Type Severity Reaction Status Date / Time hydrocodone [From [place]] AdvReac Confusion Verified 07/16/22 11:48 morphine AdvReac Nausea & Verified 07/16/22 11:48 Vomiting Surgical - Exam Vital Signs Temp Pulse Resp BP Pulse Ox 97.7 F 63 18 132/91 99 07/16/22 08:37 07/16/22 08:37 07/16/22 08:37 07/16/22 08:37 07/16/22 08:37 Results - Labs 07/16/22 09:24 07/16/22 09:24 Abnormal Lab Results - Last 24 Hours (Table) 07/16/22 Range/Units 09:24 BUN 25 H (9-20) mg/dL Diabetes panel 07/16/22 Range/Units 09:24 Sodium 138 (137-145) mmol/L Potassium 4.0 (3.5-5.1) mmol/L Chloride 104 (98-107) mmol/L Carbon Dioxide 29 (22-30) mmol/L BUN 25 H (9-20) mg/dL Creatinine 0.87 (0.66-1.25) mg/dL Glucose 89 (74-99) mg/dL Calcium 8.9 (8.4-10.2) mg/dL AST 24 (17-59) U/L ALT 20 (4-49) U/L Alkaline Phosphatase 56 (38-126) U/L Total Protein 6.4 (6.3-8.2) g/dL Albumin 3.9 (3.5-5.0) g/dL Calcium panel 07/16/22 Range/Units 09:24 Calcium 8.9 (8.4-10.2) mg/dL Albumin 3.9 (3.5-5.0) g/dL Pituitary panel 07/16/22 Range/Units 09:24 Sodium 138 (137-145) mmol/L Potassium 4.0 (3.5-5.1) mmol/L Chloride 104 (98-107) mmol/L Carbon Dioxide 29 (22-30) mmol/L BUN 25 H (9-20) mg/dL Creatinine 0.87 (0.66-1.25) mg/dL Glucose 89 (74-99) mg/dL Calcium 8.9 (8.4-10.2) mg/dL Adrenal panel 07/16/22 Range/Units 09:24 Sodium 138 (137-145) mmol/L Potassium 4.0 (3.5-5.1) mmol/L Chloride 104 (98-107) mmol/L Carbon Dioxide 29 (22-30) mmol/L BUN 25 H (9-20) mg/dL Creatinine 0.87 (0.66-1.25) mg/dL Glucose 89 (74-99) mg/dL Calcium 8.9 (8.4-10.2) mg/dL Total Bilirubin 0.8 (0.2-1.3) mg/dL AST 24 (17-59) U/L ALT 20 (4-49) U/L Alkaline Phosphatase 56 (38-126) U/L Total Protein 6.4 (6.3-8.2) g/dL Albumin 3.9 (3.5-5.0) g/dL
[2022-07-17] MEDS: PIPERACILLIN-TAZOBACTAM 3.375 GM in SODIUM CHLORIDE 0.9% 100 ML IVPB SCH ×2 (09:39→20:53)
[2022-07-17] MEDS ORDERED: INDOCYANINE GREEN 25 MG VIAL IV STA (10:01)
[2022-07-17] MEDS ORDERED: ACETAMINOPHEN TAB 500 MG TAB PO STA (10:01)
[2022-07-17] MEDS ORDERED: TAMSULOSIN 0.4 MG CAP.ER.24H PO STA (10:01)
[2022-07-17 10:50] LABS: Basophils # (A) 0.07 X 10*3/uL (0.00-0.10); Basophils % (A) 1.3 %; Eosinophils # (A) 0.52 X 10*3/uL (0.04-0.35); Eosinophils % (A) 9.3 %; HCT 45.6 % (39.6-50.0); HGB 15.1 g/dL (13.0-17.0); Immature Grans, Automated 0.2 %; Lymphocytes # (A) 1.48 X 10*3/uL (0.90-5.00); Lymphocytes % (A) 26.5 %; MCH 30.6 pg (27.0-32.0); MCHC 33.1 g/dL (32.0-37.0); MCV 92.3 fL (80.0-97.0); Mean Platelet Volume 9.8 fL (9.5-12.2); Monocytes # (A) 0.42 X 10*3/uL (0.20-1.00); Monocytes % (A) 7.5 %; NRBC Per 100 WBC 0 /100 WBCS (0.0-0.0); Neutrophils # (A) 3.09 X 10*3/uL (1.80-7.70); Neutrophils % (A) 55.2 %; Platelet Count 201 X 10*3/uL (140-440); RBC 4.94 X 10*6/uL (4.40-5.60); RDW 12.1 % (11.5-14.5); WBC 5.59 X 10*3/uL (4.50-10.00)
[2022-07-17 11:15] LABS: African American GFR (CKD) 91.8 (60.0-200.0); Anion Gap 8.2 mmol/L (10.00-18.00); BUN/Creat Ratio 17.3 Ratio (12.00-20.00); Blood Urea Nitrogen 17.3 mg/dL (9.0-27.0); Carbon Dioxide 27.8 mmol/L (20.0-27.5); Non-African American GFR(CKD) 79.2 (60.0-200.0); Potassium 4.1 mmol/L (3.5-5.5)
[2022-07-17] MEDS ORDERED: IV FLUID CONTINUATION 1,000 ML IV ONE (15:17)
[2022-07-17] MEDS ORDERED: DEXAMETHASONE SOD PHOSPHATE 4 MG/ML 1 ML VIAL IVP ONE (15:27)
[2022-07-17] MEDS ORDERED: ONDANSETRON 4 MG/2 ML VIAL IVP ONE (15:27)
[2022-07-17] MEDS ORDERED: GLYCOPYRROLATE 0.2 MG/ML 2 ML VIAL ONE (15:48)
[2022-07-17] MEDS ORDERED: HEPARIN SODIUM,PORCINE 5,000 UNIT/ML 1 ML VIAL ONE (15:48)
[2022-07-17] MEDS ORDERED: KETOROLAC 15 MG/ML 1 ML VIAL ONE (15:48)
[2022-07-17] MEDS ORDERED: fentaNYL (PF) 50 MCG/ML 2 ML AMP ONE (15:48)
[2022-07-17] MEDS ORDERED: NEOSTIGMINE 1 MG/ML 10 ML VIAL ONE (15:48)
[2022-07-17] MEDS ORDERED: ePHEDrine 50 MG/ML 1 ML VIAL ONE (15:48)
[2022-07-17] MEDS ORDERED: ROCURONIUM 10 MG/ML (5 ML VIAL) IV ONE (15:48)
[2022-07-17] MEDS ORDERED: SUCCINYLCHOLINE CHLORIDE 200 MG/10 ML VIAL IV ONE (15:48)
[2022-07-17] MEDS ORDERED: PROPOFOL 10 MG/ML 20 ML VIAL IV ONE (15:48)
[2022-07-17] MEDS ORDERED: LIDOCAINE 2% INJ 20 MG/ML (2 ML VIAL) ONE (15:48)
[2022-07-17] MEDS ORDERED: LIDOCAINE 0.5%-EPI 1:200,000 50 ML VIAL SQ ONE ×2 (16:16→16:19)
[2022-07-17] MEDS ORDERED: LACTATED RINGERS 1,000 ML IV ONE (16:26)
[2022-07-17] MEDS ORDERED: ACETAMINOPHEN IV (For NPO) 1,000 MG in EMPTY BAG 1 BAG IVPB ONE (18:00)
[2022-07-17] MEDS: KETOROLAC 15 MG/ML 1 ML VIAL IVP SCH ×2 (18:25→23:56)
--- NOTE | 2022-07-17 21:46 | P.OP ---
Date of Procedure: 07/17/22 Description of Procedure: SURGEON: REYNA GÓMEZ MD PREOPERATIVE DIAGNOSES: 1. Intractable right upper quadrant abdominal pain 2. Acute cholecystitis POSTOPERATIVE DIAGNOSES: 1. Acute on chronic cholecystitis 2. Right lower quadrant peritoneal irritation 3. Intractable right upper quadrant abdominal pain OPERATION: Robotic-assisted da Letty Xi laparoscopic cholecystectomy, multiport with FIREFLY ESTIMATED BLOOD LOSS: 5 mL. SPECIMENS REMOVED: Gallbladder. COMPLICATIONS: None. OPERATIVE FINDINGS: 1. Severe right upper quadrant peritoneal adhesions of omentum to the abdominal wall including gallbladder 2. Severe pericholecystic adhesions consistent with chronic on acute cholecystitis 3. No recurrent left inguinal hernia identified INDICATIONS: The patient is a 66-year-old male who presents intractable right upper quadrant abdominal pain and clinical acute cholecystitis. Robotic assisted laparoscopic approach was described. Benefits and risks of the procedure including but not limited to bleeding, infection, injury to the biliary tree was described. Informed consent was obtained. DESCRIPTION OF PROCEDURE: Patient was brought to the operating room, placed in supine position. After general induction, the abdomen had been prepped and draped in standard sterile fashion. The robotic da Letty XI system was primed. After a timeout protocol was performed, the patient had been prepped and draped in standard sterile fashion. The patient was injected with indocyanine green. A 5 mm 0 degrees laparoscopic trocar entry was performed along the left upper quadrant. The abdomen insufflated to 15 mmHg pressure which was tolerated well. Diagnostic laparoscopy demonstrated no injury to bowel viscera or mesentery. The liver surface was unremarkable. Next, two 8 mm robotic ports were placed along the right upper abdomen. The camera 8-mm port was maintained along the epigastrium. Another 8 mm port was placed along the left upper abdominal wall after exchanging the 5 mm port. Please note that the ports were placed at least 10 to 15 cm away from the target anatomy of the gallbladder. The robot was docked along the left lateral abdomen. The patient was repositioned in reverse Trendelenburg position. Using a grasper for arm 3, a grasper for arm 4, including hook cautery for arm 1, the robotic system was docked and primed as described. Instruments were interchanged by the vector control assistant including hook cautery, Bovie cautery and clip appliers. I had sat at the console. The gallbladder was scarred with peritoneal adhesions. Lysis of adhesions was performed to free the gallbladder from the surrounding tissues. Next attention was brought to the infundibulum and cystic structures. The infundibulum and cystic duct were dissected free from surrounding tissues. The cystic duct was isolated. FIREFLY was used to identify the cystic artery and cystic structures. A critical view of safety was obtained. Large PLASTIC clips were used throughout the entire case. Using a clip games dealer, 2 clips were placed at the junction of the infundibulum and cystic duct. The cystic duct was divided between clips. Next, the cystic artery was similarly clipped and cauterized. Electro-Bovie cautery was used to remove the gallbladder from the hepatic fossa. Hemostasis was checked and found to be adequate. The robot was undocked. I re-scrubbed into the case. Using a 10 mm Endo Catch bag via the left upper quadrant incision, the specimen was removed from the abdominal cavity. Contamination occurred after gallbladder retrieval rupture along removal from the skin. All pneumoperitoneum instruments were evacuated from the abdominal cavity. The incisions were reapproximated using 4-0 Monocryl in an interrupted subcuticular fashion. Fascial defects were less than 8 mm in size. Please note along the trocar sites, local anesthetic was placed as a field block prior to insertion of all instruments. Liquid glue was applied to the skin. At the end of the procedure needle, sponge, and instrument count had been verified correct by the instructor adjunct surgical technician. The patient was transferred to postanesthesia care unit in stable condition. Intraoperative films were shared with the patient's family.
[2022-07-18] MEDS: SODIUM CHLORIDE 0.9% 1,000 ML IV SCH (03:46)
[2022-07-18] MEDS: PIPERACILLIN-TAZOBACTAM 3.375 GM in SODIUM CHLORIDE 0.9% 100 ML IVPB SCH (03:46)
[2022-07-18] MEDS: KETOROLAC 15 MG/ML 1 ML VIAL IVP SCH ×2 (04:56→10:31)
[2022-07-18 07:57] VITALS: BP 124/78; PULSE 74; RESP 18; TEMP 97.8
[2022-07-18] MEDS ORDERED: TAMSULOSIN 0.4 MG CAP.ER.24H PO SCH (08:30)
[2022-07-18] MEDS ORDERED: PANTOPRAZOLE 40 MG/10 ML VIAL IV SCH (09:00)
[2022-07-18] MEDS ORDERED: ENOXAPARIN 30 MG/0.3 ML SYRINGE SQ SCH (09:00)
[2022-07-18 09:32] LABS: African American GFR (CKD) 81.8 (60.0-200.0); Albumin 3.8 g/dL (3.8-4.9); Anion Gap 11.1 mmol/L (10.00-18.00); BUN/Creat Ratio 18.73 Ratio (12.00-20.00); Blood Urea Nitrogen 20.6 mg/dL (9.0-27.0); Calcium 8.7 mg/dL (8.7-10.3); Carbon Dioxide 21.9 mmol/L (20.0-27.5); Globulin 1.9 g/dL (1.6-3.3); Non-African American GFR(CKD) 70.6 (60.0-200.0); Potassium 3.9 mmol/L (3.5-5.5); Total Bilirubin 0.4 mg/dL (0.30-1.20); Total Protein 5.7 g/dL (6.2-8.2)
--- NOTE | 2022-07-18 10:53 | P.DS ---
Providers Date of admission: 07/16/22 13:30 Expected date of discharge: 07/18/22 Attending physician: Beverly Munoz Primary care physician: Luigi Vaz Benezett [facility] Course: Patient clinically doing well. Complete resolution of right upper quadrant abdominal pain. Flexeril, ibuprofen, Tylenol for home pain medications. Follow telehealth in 1 week. Patient stable for discharge. Principal metabolic panel within normal limits. Patient Condition at Discharge: Stable Plan - Discharge Summary Discharge Rx Participant: Yes New Discharge Prescriptions: New Acetaminophen Tab [Tylenol Tab] 1,000 mg PO Q6HR PRN #30 tablet PRN Reason: Pain Ibuprofen [Motrin] 600 mg PO Q8HR PRN #30 tab PRN Reason: Pain Continue modafiniL [Provigil] 200 mg PO DAILY Celecoxib [CeleBREX] 200 mg PO DAILY ALPRAZolam [Xanax] 0.25 mg PO BID PRN PRN Reason: Anxiety Lisinopril-Hctz 20-12.5 mg [Zestoretic 20-12.5] 1 tab PO DAILY Acetaminophen Tab [Tylenol] 1,000 mg PO Q6HR PRN #30 tablet PRN Reason: Pain Tamsulosin [Flomax] 0.4 mg PO HS Fluticasone/Umeclidin/Vilanter [Trelegy Ellipta 100-62.5-25] 1 puff INHALATION RT-DAILY Simethicone [Gas-X] 125 mg PO AC-TID PRN #20 capsule PRN Reason: Pain Discharge Medication List Celecoxib [CeleBREX] 200 mg PO DAILY 09/18/15 [History] modafiniL [Provigil] 200 mg PO DAILY 09/18/15 [History] ALPRAZolam [Xanax] 0.25 mg PO BID PRN 04/30/20 [History] Fluticasone/Umeclidin/Vilanter [Trelegy Ellipta 100-62.5-25] 1 puff INHALATION RT-DAILY 06/20/22 [History] Lisinopril-Hctz 20-12.5 mg [Zestoretic 20-12.5] 1 tab PO DAILY 06/20/22 [History] Tamsulosin [Flomax] 0.4 mg PO HS 06/20/22 [History] Acetaminophen Tab [Tylenol] 1,000 mg PO Q6HR PRN #30 tablet 06/21/22 [Rx] Simethicone [Gas-X] 125 mg PO AC-TID PRN #20 capsule 06/21/22 [Rx] Acetaminophen Tab [Tylenol Tab] 1,000 mg PO Q6HR PRN #30 tablet 07/17/22 [Rx] Ibuprofen [Motrin] 600 mg PO Q8HR PRN #30 tab 07/17/22 [Rx] Follow up Appointment(s)/Referral(s): Beverly Munoz MD [STAFF PHYSICIAN] - 07/22/22 Luigi Lara DO [Primary Care Provider] - 1-2 days Patient Instructions/Handouts: *Surgery [facility] - Managing Your Pain After Surgery Without Opioids, Laparoscopic Cholecystectomy (DC) Activity/Diet/Wound Care/Special Instructions: TELEHEALTH - DR WILL CALL YOU BETWEEN 8 am to 6 pm Recommend low-fat diet for the next 2 days. No lifting over 10 pounds in 2 weeks until July 31. May shower. No bath tub soaks for two weeks until July 31. Diet as tolerated. Use Tylenol, simethicone and ibuprofen or Aleve scheduled for the next 24-48 hours for best pain relief. Use ice along incisions for today to prevent swelling. Discharge Disposition: HOME SELF-CARE
== END 2022-07-18 11:43 | disposition home or self-care (01) ==
LOC: EC 08:32 → 6NMEDSUR 13:30
PROVIDERS: ADMIT Surgery Plastic and Reconstructive Surgery; ATTEND Surgery Plastic and Reconstructive Surgery
DX: K81.1 Chronic cholecystitis (principal); K81.0 Acute cholecystitis; Z98.890 Other specified postprocedural states; Z83.79 Family history of other diseases of the digestive system; K57.92 Diverticulitis of intestine, part unspecified, without perforation or abscess without bleeding; K57.90 Diverticulosis of intestine, part unspecified, without perforation or abscess without bleeding; N20.0 Calculus of kidney; Z86.19 Personal history of other infectious and parasitic diseases; N40.0 Benign prostatic hyperplasia without lower urinary tract symptoms; Z86.16 Personal history of COVID-19; Z96.642 Presence of left artificial hip joint; Z96.653 Presence of artificial knee joint, bilateral; Z96.693 Finger-joint replacement, bilateral; F41.9 Anxiety disorder, unspecified; F32.A Depression, unspecified; Z80.51 Family history of malignant neoplasm of kidney; Z80.3 Family history of malignant neoplasm of breast; Z79.51 Long term (current) use of inhaled steroids; Z79.899 Other long term (current) drug therapy; Z88.5 Allergy status to narcotic agent
CPT/HCPCS: 96376 ×2; 96374; 96375; 99285; 36415; 93005; 88304; 80053 ×2; 80048; 83605; 83690; 85025 ×2; 74177; 47563; G0378 ×3; J2543 ×3; J0330; J1644; J1100; J2710; J0690; J2405; J0696; J3010; J1650; J1170 ×2; J0131; J1885 ×2; J2704; C9113; Q9967; J2001

== ENCOUNTER 2023-01-11 03:29 | Emergency (ER) | payer MEDICARE, OTHER ==
--- NOTE | 2023-01-11 03:37 | ED ---
General Adult HPI - General Stated complaint: Cough, Congestion Time Seen by Provider: 01/11/23 03:32 Source: patient, RN notes reviewed, old records reviewed Mode of arrival: ambulatory Limitations: no limitations - History of Present Illness Initial comments: 67-year-old male presenting with several days of cough, congestion, bodyaches. Patient states that he has coughing fits. No measured fever. Is also had congestion and myalgia. He has been using his albuterol at home as well as some amoxicillin he had left over from another illness. This is only provided minimal relief. - Related Data Home Medications Medication Instructions Recorded Confirmed Celecoxib [CeleBREX] 200 mg PO DAILY 09/18/15 07/16/22 modafiniL [Provigil] 200 mg PO DAILY 09/18/15 07/16/22 ALPRAZolam [Xanax] 0.25 mg PO BID PRN 04/30/20 07/16/22 Fluticasone/Umeclidin/Vilanter 1 puff INHALATION RT-DAILY 06/20/22 07/16/22 [Trelegy Ellipta 100-62.5-25] Lisinopril-Hctz 20-12.5 mg 1 tab PO DAILY 06/20/22 07/16/22 [Zestoretic 20-12.5] Tamsulosin [Flomax] 0.4 mg PO HS 06/20/22 07/16/22 Previous Rx's Medication Instructions Recorded Acetaminophen Tab [Tylenol] 1,000 mg PO Q6HR PRN #30 tablet 06/21/22 Simethicone [Gas-X] 125 mg PO AC-TID PRN #20 capsule 06/21/22 Acetaminophen Tab [Tylenol Tab] 1,000 mg PO Q6HR PRN #30 tablet 07/17/22 Ibuprofen [Motrin] 600 mg PO Q8HR PRN #30 tab 07/17/22 Cyclobenzaprine [Flexeril] 10 mg PO TID #30 tab 07/18/22 Azithromycin [Zithromax Z Pack] 1 tab PO DIRECTED #6 tab 01/11/23 predniSONE 50 mg PO DAILY #5 tab 01/11/23 Allergies Allergy/AdvReac Type Severity Reaction Status Date / Time hydrocodone [From [facility]] AdvReac Confusion Verified 01/11/23 03:36 morphine AdvReac Nausea & Verified 01/11/23 03:36 Vomiting Review of Systems ROS Statement: Those systems with pertinent positive or pertinent negative responses have been documented in the HPI. ROS Other: All systems not noted in ROS Statement are negative. Past Medical History Past Medical History: Prostate Disorder Additional Past Medical History / Comment(s): Kidney stone, hx. of sleep apnea- several sleep studies done. States in 2018 was in the hospital for some type of infection. States not sure what it was, but in the ICU for a couple of days. Hospitalized for a week with Covid. History of Any Multi-Drug Resistant Organisms: Other MDRO Past Surgical History: Appendectomy, Hernia Repair, Joint Replacement Additional Past Surgical History / Comment(s): LT SHANTEL, BILAT TKA, Bilat carpal tunnel, joint replacement both thumbs. Past Anesthesia/Blood Transfusion Reactions: No Reported Reaction Additional Past Anesthesia/Blood Transfusion Reaction / Comment(s): Takes longer to wake up. Past Psychological History: Anxiety, Depression Smoking Status: Never smoker Past Alcohol Use History: Occasional Past Drug Use History: None Reported - Past Family History Mother Family Medical History: Cancer Additional Family Medical History / Comment(s): KIDNEY Daughter(s) Family Medical History: Cancer Additional Family Medical History / Comment(s): BREAST General Exam Limitations: no limitations General appearance: alert, in no apparent distress Head exam: Present: atraumatic, normocephalic Eye exam: Present: normal appearance, PERRL ENT exam: Present: normal exam Respiratory exam: Present: normal lung sounds bilaterally. Absent: respiratory distress, wheezes, rales, rhonchi Cardiovascular Exam: Present: regular rate, normal rhythm GI/Abdominal exam: Present: soft. Absent: distended, tenderness, guarding, rebound Extremities exam: Present: normal inspection Neurological exam: Present: alert, oriented X3, CN II-XII intact. Absent: motor sensory deficit Psychiatric exam: Present: normal affect, normal mood Skin exam: Present: warm, dry, intact. Absent: cyanosis, diaphoretic Course Vital Signs 01/11/23 01/11/23 01/11/23 03:34 03:50 04:35 Temperature 98.5 F Pulse Rate 62 61 65 Respiratory 18 20 20 Rate Blood Pressure 160/101 126/85 121/74 O2 Sat by Pulse 98 95 95 Oximetry Medical Decision Making - Medical Decision Making Was pt. sent in by a medical professional or institution ([facility], [facility], urgent care, hospital, or jail...) When possible be specific @ -[No] Did you speak to anyone other than the patient for history (EMS, parent, family, police, friend...)? What history was obtained from this source @ -[No] Did you review nursing and triage notes (agree or disagree)? Why? @ -[I reviewed and agree with nursing and triage notes] Were old charts reviewed (outside hosp., previous admission, EMS record, old EKG, old radiological studies, urgent care reports/EKG's, jail records)? Report findings @ -[No old charts were reviewed] Differential Diagnosis (chest pain, altered mental status, abdominal pain women, abdominal pain men, vaginal bleeding, weakness, fever, dyspnea, syncope, headache, dizziness, GI bleed, back pain, seizure, CVA, palpatations, mental health, musculoskeletal)? @ Pneumonia, asthma exacerbation, bronchitis, upper respiratory infection EKG interpreted by me (3pts min.). @ -[As above] X-rays interpreted by me (1pt min.). @ Chest x-ray: Negative for pneumothorax or acute findings CT interpreted by me (1pt min.). @ -[None done] U/S interpreted by me (1pt. min.). @ -[None done] What testing was considered but not performed or refused? (CT, X-rays, U/S, labs)? Why? @ -[None] What meds were considered but not given or refused? Why? @ -[None] Did you discuss the management of the patient with other professionals (professionals i.e. [facility] Packer, [facility], lab, RT, psych nurse, health and social care teacher, body finisher, teacher, patrol officer, rn field case manager)? Give summary @ -[No] Was smoking cessation discussed for >3mins.? @ -[No] Was critical care preformed (if so, how long)? @ -[No] Were there social determinants of health that impacted care today? How? (Homelessness, low income, unemployed, alcoholism, drug addiction, transportation, low edu. Level, literacy, decrease access to med. care, intermediate, rehab)? @ -[No] Was there de-escalation of care discussed even if they declined (Discuss DNR or withdrawal of care, Hospice)? DNR status @ -[No] What co-morbidities impacted this encounter? (DM, HTN, Smoking, COPD, CAD, Cancer, CVA, ARF, Chemo, Hep., AIDS, mental health diagnosis, sleep apnea, morbid obesity)? @ -[Reactive airway disease Was patient admitted / discharged? Hospital course, mention meds given and route, prescriptions, significant lab abnormalities, going to OR and other pertinent info. @ -[67-year-old male with cough, congestion, myalgia. Patient afebrile well- appearing. He has bronchospastic cough without wheezing or respiratory distress. He appears well-hydrated. No vomiting. Undiagnosed new problem with uncertain prognosis? @ -[No] Drug Therapy requiring intensive monitoring for toxicity (Heparin, Nitro, Insulin, Cardizem)? @ -[No] Were any procedures done? @ -[No] Diagnosis/symptom? @ -Upper respiratory infection, acute bronchitis Acute, or Chronic, or Acute on Chronic? @ -Upper Uncomplicated (without systemic symptoms) or Complicated (systemic symptoms)? @ -[default] Side effects of treatment? @ -[No] Exacerbation, Progression, or Severe Exacerbation? @ -[No] Poses a threat to life or bodily function? How? (Chest pain, [place], [place], pneumonia, PE, COPD, DKA, ARF, appy, cholecystitis, CVA, Diverticulitis, Homicidal, Rekha cidal, threat to staff... and all critical care pts) @ -[No] - Lab Data Lab Results 01/11/23 Range/Units 03:56 Influenza Type A (PCR) Not Detected (Not Detectd) Influenza Type B (PCR) Not Detected (Not Detectd) RSV (PCR) Not Detected (Not Detectd) SARS-CoV-2 (PCR) Not Detected (Not Detectd) Disposition Clinical Impression: Bronchitis Disposition: HOME SELF-CARE Condition: Good Instructions (If sedation given, give patient instructions): Acute Bronchitis (ED) Prescriptions: predniSONE 50 mg PO DAILY #5 tab Azithromycin [Zithromax Z Pack] 1 tab PO DIRECTED #6 tab Is patient prescribed a controlled substance at d/c from ED?: No Referrals: Luigi Lara DO [Primary Care Provider] - 1-2 days Time of Disposition: 05:06
--- NOTE | 2023-01-11 05:13 | XR ---
EXAMINATION TYPE: XR chest 2V DATE OF EXAM: 01/11/2023 COMPARISON: CTA chest January 15, 2019 HISTORY: Cough TECHNIQUE: Frontal and lateral views of the chest are obtained. FINDINGS: Somewhat low lung volumes are present. There is no suspicious focal air space opacity, ple ural effusion, or pneumothorax seen. The cardiac silhouette size remains within normal limits. The osseous structures are intact. IMPRESSION: No acute infiltrate.
[2023-01-11 05:21] VITALS: BP 122/89; PULSE 55; RESP 18; TEMP 98.8
== END 2023-01-11 05:24 | disposition home or self-care (01) ==
LOC: EC 03:29
DX: J20.9 Acute bronchitis, unspecified (principal); F41.9 Anxiety disorder, unspecified; F32.A Depression, unspecified; Z79.899 Other long term (current) drug therapy; Z88.5 Allergy status to narcotic agent; Z88.6 Allergy status to analgesic agent; Z20.822 Contact with and (suspected) exposure to COVID-19; Z90.49 Acquired absence of other specified parts of digestive tract
CPT/HCPCS: 71046; 87636; 99284